=== PATIENT | male | born 1980 | race Caucasian/White ===

== ENCOUNTER 2024-11-21 14:23 | Inpatient (IN) | payer MEDICARE, MEDICAID, SELFPAY ==
--- OUTSIDE RECORDS SUMMARY | 2024-11-17 14:55 | XMS_ITS | Encounter Summary ---
Author Organization [facility] Address [address] [place] [address] Care Team Providers Care Test Desk Trouble Locator Name Role Phone Physician, No Pcp Primary Care Provider Unavaila ble Reason for Visit * Reason Comments Suicidal Hearing voices since yesterday Encounter Details Date Type Department Care Team (Late st Contact Info) Description 11/17/2024 2:55 PM EDT - 11/17/2024 6:45 PM EDT Emergency [facility] Emergency [address] [place] [id number] Robert Rebolledo MD [address] [place] [address] Sergio Quiles MD [address] [place] [address] Behavioral problem (Primary Dx) Discharge Disposition: Home or Self Care Social History Tobacco Use Types Packs/Day Years Used Date Smoking Tobacco: Every Day Cigarettes Alcohol Use Standard Drinks/Week Comments Not Currently 0 (1 standard drink = 0.6 oz pur e alcohol) Sex and Gender Information Value Date Recorded Sex Assigned at Male 05/21/2024 5:40 PM EDT Legal Sex Male 2:59 AM EST Gender Identity Male 05/21/2024 5:40 PM EDT Sexual Orientation Straight 05/21/2024 5: 40 PM EDT documented as of this encounter Last Filed Vital Signs Vital Sign Reading Time Taken Comments Blood Pressure 106/67 11/17/2024 5:09 PM EDT Pulse 59 11/17/2024 5:09 PM EDT Temperature 36.6 C (97.9 F) 11/17/2024 2:53 PM EDT Respiratory Rate 18 11/17/2024 5:09 PM EDT Oxygen Saturation 100% 11/17/2024 5:09 PM EDT Inhaled Oxygen Concentration - - Weight 99.8 kg (220 lb) 11/17/2024 2:50 PM EDT Height 172.7 cm (5' 8 ) 11/17/2024 2:50 PM EDT Body Mass Index 33.45 11/17/2024 2:50 PM EDT documented in this encounter Functional Status * Are you deaf or do you have serious difficulty hearing? Answer Date of Assessment Author No 09/29/2024 5:42 PM EDT Bud Chavez RN * Are you blind or do you have serious difficulty seeing, even when wearing glasses? Answer Date of Assessment Author No 09/29/2024 5:42 PM EDT Bud Chavez RN * Do you have serious difficulty walking or climbing stairs? Answer Date of Assessment Author No 09/29/2024 5:42 PM EDT Bud Chavez RN * Do you have serious difficulty dressing or bathing? Answer Date of Assessment Author No 09/29/2024 5:42 PM EDT Bud Chavez RN * Because of a physical, mental, or emotional condition, do you have serious difficulty doing errandsalone such as visiting the doctor? Answer Date of Assessment Author No 09/29/2024 5:42 PM EDT Bud Chavez RN documented as of this encounter Mental Status * Because of a physical, mental, or emotional condition, do you have serious difficulty concentrating, remembering, or making decisions? (5 years old or older) Answer Entry Date Author No 09/29/2024 5:42 PM EDT Bud Chavez RN documented in this encounter Discharge Instructions * Discharge Instructions* Sergio Quiles MD - 11/17/2024 6:04 PM EDT Follow up with primary care doctor as needed for further care. documented in this encounter Medications at Time of Discharge buprenorphine-nal oxone (SUBOXONE) 8-2 mg per [address] film Place 1 film under the tongue 3 (three) times a day. 11/05/2024 documented as of this encounter Discharge Disposition Disposition Code Departure Means Destination Comment s Home or Self Care documented in this encounter Progress Notes * Sergio Quiles MD - 11/17/2024 6:03 PM EDT Pt signed out to me by Dr. Rebolledo. Briefly, he is a 43 year old male who is being evaluated with complaints of suicidal ideation. The patient was evaluated by crisis, and they cleared him safe for discharge. I performed a substantiative portion of the medical decision making. * Albina Thapa RN - 11/17/2024 2:50 PM EDT Pt presents with thoughts of suicidal ideation and auditory hallucinations that started yesterday. Pt reports SI without plan or intent to act. Pt reports hx of schizophrenia. * Robert Rebolledo MD - 11/17/2024 2:47 PM EDT HPI Chief Complaint Patient presents with Suicidal Hearing voices since yesterday HPI 43-year-old male with a history of schizophrenia, polysubstance abuse on Suboxone and chronic tobacco use presents to the ED with suicidal ideation. Patient states he is hearing voices telling him tokill himself. He has no plan. He does not take any psychiatric medications at this time. Patient stated he has a history of auditory hallucination and was given prescription the last time but he doesnot take them. Richelle Coma Scale Score: 15 Patient History Past Medical History: Diagnosis Date Major depressive disorder, recurrent, severe with psychotic features (CMS/HCC V24, CMS/HCC V28) 05/2024 Opioid dependence (CMS/HCC V24, CMS/HCC V28) on suboxone Schizophrenia (CMS/HCC V24, CMS/HCC V28) History reviewed. No pertinent surgical history. No family history on file. Social History Tobacco Use Smoking status: Every Day Types: Cigarettes Smokeless tobacco: Not on file Substance Use Topics Alcohol use: Not Currently Drug use: Never Review of Systems Review of Systems All other systems reviewed and are negative. Physical Exam ED Triage Vitals [11/17/24 1453] Temp Heart Rate Resp BP 36.6 ??C (97.9 ??F) 72 18 113/68 SpO2 Temp src Heart Rate Source Patient Position 99 % -- -- Sitting BP Location FiO2 (%) Right arm -- Physical Exam Constitutional: Appearance: Normal appearance. HENT: Head: Normocephalic and atraumatic. Eyes: Extraocular Movements: Extraocular movements intact. Conjunctiva/sclera: Conjunctivae normal. Pupils: Pupils are equal, round, and reactive to light. Cardiovascular: Rate and Rhythm: Normal rate and regular rhythm. Heart sounds: Normal heart sounds. Pulmonary: Effort: Pulmonary effort is normal. Breath sounds: Normal breath sounds. Abdominal: General: Abdomen is flat. There is no distension. Palpations: Abdomen is soft. Tenderness: There is no abdominal tenderness. Musculoskeletal: General: Normal range of motion. Cervical back: Normal range of motion. Skin: General: Skin is warm and dry. Capillary Refill: Capillary refill takes less than 2 seconds. Neurological: General: No focal deficit present. Mental Status: He is alert and oriented to person, place, and time. Psychiatric: Mood and Affect: Mood normal. Behavior: Behavior normal. ED Course & MDM Clinical Impressions as of 11/18/24 0936 Behavioral problem Medical Decision Making 43-year-old male with a history of schizophrenia, polysubstance abuse on Suboxone and tobacco use presents to the ED with SI. On exam, he is alert, oriented and not in acute distress. His vitals werestable and he was satting at 99% on room air. He denies any headache, dizziness, chest pain or shortness of breath. Given the patient is currently having SI, will place patient on section 12 and have him evaluated by the crisis team. He denies any other physical complaints. Patient signed out to oncoming provider pending crisis eval. Procedures Robert Rebolledo MD 11/17/24 1559 Robert Rebolledo MD 11/18/24 0928 documented in this encounter Consult Notes * Gilles Centeno - 11/17/2024 6:45 PM EDTAssociated Order(s): IP CONSULT TO SLOT OPERATIONS DIRECTOR Images from the original note were not included. Behavioral Health Services - Crisis Assessment Important times Time of arrival: 14:55 Time of referral: 15:54 Time of readiness: 15:59 Time assessment started: 17:30 Time of disposition: 18:30 Location: Emergency Room (ER) Consulted case with: Lorraine Lopez LCSW Insurance information: Insurance: Medicare A&B Verified by: [facility] - Gilles Centeno Reason for Consultation / Presenting Problem: Reddy Dela Cruz is being seen today for a consultive service at the request of No att. providers found to assess risk and identify appropriate level of care. Patient arrived reporting that he has been hearing voices and has SI without a plan. During assessment, he stated that he is no longer feeling suicidal and that he has been hearing the voices more now that he is living alone in an apartment. Patient reported that he needs a counselor. S providedpatient with BHN information and asked if he would like S to put in a referral for BHN. Patient declined BHN referral. He denied SI/HI/VH. History of Present Illness: Reddy is a 43 y.o. male with Chief Complaint Patient presents with Suicidal Hearing voices since yesterday Social/Educational History: Guardian - if Yes, provide contact information: No Status: No State Agency Involvement: None Luis Miguel's Order: No Marital Status: Single Alternative Placement Details: None Living Situation for patient: Patient has recently gotten an apartment through [facility]. Household Members/Age: Patient lives independently by himself. Friendships/Family/Social Peer Support/Relationships: Unknown Highest level of education: 9th grade Comments (Include Learning Needs): None Occupation: Disabled Employment/Extracurricular Activities/Hobbies: Unknown Limitations of Daily Activities: None Strengths/Supports: Patient has stable housing and income. Patient is help- seeking. Patient is ableto advocate for himself. Collaterals, contact information, and engagement level: Therapist: [facility]: Psychiatrist: [facility]: PCP: Unknown Family: None reported Other: [facility] counseling case managerGrant Mental Status Speech: WNL Eye Contact: WNL Motor Activity: WNL Mood: Pleasant Affect: Appropriate Sleep: WNL Appetite: WNL Memory: WNL Attention / Concentration: WNL Behavior: Cooperative and Calm Appearance: Hallucinations: Auditory Delusions: None Thought Content: WNL SI: Denied HI: Denied Thought Process: WNL Orientation Impairment: None Insight: Fair Judgment: Fair Impulse Control: Fair Substance Use History (Including family history): Previous assessment reports that patient has a history of using heroin, cannabis, and alcohol. Per previous documentation, patient last used heroin 5 years ago and drinks socially. Utox Results: Utox was positive for cannabis and suboxone. BAL was normal. Substance Use Treatment History: Patient has a history of detox admissions. He is currently receiving suboxone through [facility]. Mental Health Treatment History: Outpatient Mental Health Treatment: Patient is receiving outpatient mental health support through [facility]. Previous or Current Psychological Diagnosis: Previous documentation reports that patient has been diagnosed with schizophrenia and depression. Prior Psychiatric Hospitalizations/Residential Treatment Facilities: Patient is known to [facility] through multiple crisis assessments and inpatient psychiatric admissions. Per documentation, patient's last inpatient hospitalization was at [facility] in 06/2024. Other Comments Regarding Mental Health Treatment History: No Mental Health Concerns in Family: None reported Trauma History: Patient denied history of trauma or abuse. Medications: Scheduled Meds: Continuous Infusions: PRN Meds: Risk Assessment: Self-Harm: None Suicidal Behavior: None Homicidal Behavior: None Physical Assault: None Physical Aggression: None Property Damage: None Verbal Aggression: None Family history of suicide: None reported Protective Factors: Patient has stable housing and income. Patient is help- seeking. Patient is ableto advocate for himself. Risk Factors: Patient continues to struggle with AH. Patient is experiencing life change (new apartment after having been homeless). Suicide Risk: Based on patient's history and current presentation, their level of risk for intentional lethal harm is considered Low Safety Plan Completed: no Patient is aware that he is able to return to [facility] if he becomes worse. Interventions: Risk/crisis assessment, active listening, empathetic listening, resources Response to interventions: Patient was cooperative, engaged, and aligned with speaking with [facility]. DSM-5TR Diagnosis: F33.2 Major Depression recurrent, moderate Plan: Based on the information above, patient does not meet criteria for psychiatric inpatient admission.Per patient request he was provided with information for [facility]. Upon discharge, patient would benefitfrom reaching out to [facility] and setting up supports now that he is no longer unhoused. Recommendations were discussed with requesting provider. It was a pleasure to assist Reddy Dela Cruz here at [facility]. This report is written and finalized by: Gilles Centeno Behavioral Health Specialist [facility] (Tel): [phone] / : [phone] documented in this encounter Plan of Treatment Not on file documented as of this encounter Procedures Procedure Name Priority Date/Time Associated Diagnosis Comments ECG ANNOTATED 11/18/2024 ECG 12-LEAD STAT 11/17/2024 5:09 PM EDT DRUG ABUSE SCREEN 8A PANEL, URINE STAT 11/17/2024 3:25 PM EDT BUPRENORPHINE SCREEN, URINE STAT 11/17/2024 3:25 PM EDT METHADONE SCREEN, URINE STAT 11/17/2024 3:25 PM EDT PHENCYCLIDINE, URINE STAT 11/17/2024 3:25 PM EDT CBC WITH AUTO DIFFERENTIAL STAT 11/17/2024 3:24 PM EDT CBC AND DIFFERENTIAL STAT 11/17/2024 3:24 PM EDT ETHANOL STAT 11/17/2024 3:24 PM EDT ACETAMINOPHEN LEVEL STAT 11/17/2024 3 :24 PM EDT SALICYLATE LEVEL STAT 11/17/2024 3:24 PM EDT COMPREHENSIVE METABOLIC PANEL STAT 11/17/2024 3:24 PM EDT documented in this encounter Results * ECG-Annotated (11/18/2024) us Provider Onbase MD ECG ORDERABLES Final Result * ECG 12 lead (11/17/2024 5:09 PM EDT) Ventricular Rate ECG 55 BPM GEMUSE Atrial Rate 55 BPM GEMUSE P-R Interval 164 ms GEMUSE QRS Duration 84 ms GEMUSE Q-T Interval 390 ms GEMUSE QTc 373 ms GEMUSE P Wave [place] 20 degrees GEMUSE R [place] 22 degrees GEMUSE T [place] 1 degrees GEMUSE ECG Interpretation Sinus bradycardia Nonspecific T wave abnormality When compared with ECG of 01-JUL-2024 13:02, Vent. rate has decreased BY 27 BPM Confirmed by Ara HIDALGO YUFENG ([id number]) on 11/17/2024 6:46:10 PM GEMUSE 11/17/2024 5:09 PM EDT 11/17/2024 6:46 PM EDT Robert Rebolledo MD ECG ORDERABLES Mindy l Result Performing Organization Address City/[facility]/ZIP Co de Phone Number GEMUSE * Methadone, urine (11/17/2024 3:25 PM EDT) Pathologist [facility] Methadone Screen, Urine Negative Negative LAB CHEMISTRY METHOD 11/17/2024 4:02 PM EDT [facility] Comment: Assay cutoff 300 ng/mL Semi-quantitative assay for screening purposes only. Unconfirmed screening result should not be used for non-medical purposes. *ALTERNATE METHOD CONFIRMATION DONE UPON REQUEST ONLY* Urine Urine specimen obtained by clean catch procedure / Unknown Non-blood Collection / Unknown 11/17/2024 3:25 PM EDT 11/17/2024 3:32 PM EDT Robert Rebolledo MD LAB URINE ORDERABLES Final Result [facility] [address] [place] [address], [place] [phone] * Phencyclidine, urine (11/17/2024 3:25 PM EDT) PCP Scrn, Ur Negative Negative LAB CHEMISTRY METHOD 11/17/2024 4:02 PM EDT [facility] Comment: Assay cutoff 25 ng/mL Semi-quantitative assay for screening purposes only. Unconfirmed screening result should not be used for non-medical purposes. *ALTERNATE METHOD CONFIRMATION DONE UPON REQUEST ONLY* Urine Urine specimen obtained by clean catch procedure / Unknown Non-blood Collection / Unknown 11/17/2024 3:25 PM EDT 11/17/2024 3:32 PM EDT Robert Rebolledo MD LAB URINE ORDERABLES Final Result [facility] [address] [place] [address], [place] [phone] * (ABNORMAL) Buprenorphine screen, urine (11/17/2024 3:25 PM EDT) Buprenorphine Screen Urine Positive (A) Negative LAB CHEMISTRY METHOD 11/17/2024 4:02 PM EDT [facility] Urine Urine specimen obtained by clean catch procedure / Unknown Non-blood Collection / Unknown 11/17/2024 3:25 PM EDT 11/17/2024 3:32 PM EDT Narrative [facility] - 11/17/2024 4:02 PM EDT Assay cutoff 5 ng/mL Semi-quantitative assay for screening purposes only. Unconfirmed screening result should not be used for non-medical purposes. *ALTERNATE METHOD CONFIRMATION DONE UPON REQUEST ONLY* Robert Rebolledo MD LAB URINE ORDERABLES Final Result [facility] [address] [place] [address], [place] [phone] * (ABNORMAL) Drug abuse screen 8a panel, urine (11/17/2024 3:25 PM EDT) Amphetamine Screen, Ur Negative Negative LAB CHEMISTRY METHOD 4:02 PM EDT [facility] Comment:Certain OTC medicati ons containing ephedrine, phenylephrine, pseudoephedrine and phenylpropanolamine can cause false positive results. Barbiturate Screen, Ur Negative Negative LAB CHEMISTRY METHOD 5 4:02 PM EDT [facility] Benzodiazepine Screen, Ur Negative Negative LAB CHEMISTRY METHOD 5 4:02 PM EDT [facility] Cocaine Screen, Ur Negative Negative LAB CHEMISTRY METHOD 5 4:02 PM [facility] Opiate Screen, Ur Negative Negative LAB CHEMISTRY METHOD 5 4:02 PM [facility] Cannabinoid (THC) Screen, Ur Positive(A ) Negative LAB CHEMISTRY METHOD 5 4:02 PM [facility] Comment:Specimens from patie nts taking pantoprazole sodium (Protonix) have been shown to produce false positive results. Oxycodone Screen, Ur Negative Negative LAB CHEMISTRY METHOD 5 4:02 PM [facility] Fentanyl, Ur Negative Negative LAB CHEMISTRY METHOD 5 4:02 PM [facility] Urine Urine specimen obtained by clean catch procedure / Unknown Non-blood Collection / Unknown 11/17/2024 3:25 PM EDT 11/17/2024 3:32 PM EDT Narrative [facility] - 11/17/2024 4:02 PM EDT Assay cutoffs: Amphetamines 1000 ng/mL Barbiturates 200 ng/mL Benzodiazepines 200 ng/mL Cocaine 300 ng/mL Fentanyl 1 ng/mL Opiates 300 ng/mL Oxycodone 100 ng/mL THC 50 ng/mL Semi-quantitative assay for screening purposes only. Unconfirmed screening result should not be used for non-medical purposes. *ALTERNATE METHOD CONFIRMATION DONE UPON REQUEST ONLY* us Robert Rebolledo MD LAB URINE ORDERABLES Final Result [facility] [address] [place] [address], * (ABNORMAL) CBC auto differential (11/17/2024 3:24 PM EDT) [facility] Signature WBC 7.2 4.8 - 10.8 K/mcL LAB HEMETOLOGY METHOD 11/17/2024 3:39 PM EDT [facility] RBC 4.20(L) 4.50 - 5.50 M/mcL LAB HEMETOLOGY METHOD 11/17/2024 3:39 PM EDT [facility] Hemoglobin 12.3(L) 13.5 - 17.5 g/dL LAB HEMETOLOGY METHOD 11/17/2024 3:39 PM EDT [facility] Hematocrit 37.6(L) 42.0 - 54.0 % LAB HEMETOLOGY METHOD 11/17/2024 3:39 PM EDT [facility] MCV 90.2 79.0 - 98.0 FL LAB HEMETOLOGY METHOD 11/17/2024 3:39 PM EDT [facility] MCH 29.5 27.0 - 32.0 pcg LAB HEMETOLOGY METHOD 11/17/2024 3:39 PM EDT [facility] MCHC 32.7 32.0 - 37.0 g/dL LAB HEMETOLOGY METHOD 11/17/2024 3:39 PM EDT [facility] RDW 13.2 11.0 - 15.0 % LAB HEMETOLOGY METHOD 11/17/2024 3:39 PM EDT [facility] Platelets 298 130 - 400 K/mcL LAB HEMETOLOGY METHOD 11/17/2024 3:39 PM EDT [facility] MPV 8.9 7.0 - 11.0 FL LAB HEMETOLOGY METHOD 11/17/2024 3:39 PM EDT [facility] NRBC 0.0 <1.0 % LAB HEMETOLOGY METHOD 11/17/2024 3:39 PM [facility] NRBC Absolute 0.00 <0.10 K/mcL LAB HEMETOLOGY METHOD 11/17/2024 3:39 PM [facility] Neutrophils Relative 48.9 % LAB HEMETOLOGY METHOD 11/17/2024 3:39 PM [facility] Lymphocytes Relative 40.7 % LAB HEMETOLOGY METHOD 11/17/2024 3:39 PM [facility] Monocytes Relative 6.2 % LAB HEMETOLOGY METHOD 11/17/2024 3:39 PM [facility] Eosinophils Relative 3.0 % LAB HEMETOLOGY METHOD 11/17/2024 3:39 PM [facility] Basophils Relative 1.1 % LAB HEMETOLOGY METHOD 11/17/2024 3:39 PM [facility] Immature Granulocytes Relative 0.1 % LAB HEMETOLOGY METHOD 11/17/2024 3:39 PM [facility] Neutrophils Absolute 3.52 1.50 - 7.00 K/mcL LAB HEMETOLOGY METHOD 11/17/2024 3:39 PM [facility] Lymphocytes Absolute 2.94 1.00 - 5.00 K/mcL LAB HEMETOLOGY METHOD 11/17/2024 3:39 PM [facility] Monocytes Absolute 0.45 0.20 - 1.00 K/mcL LAB HEMETOLOGY METHOD 11/17/2024 3:39 PM [facility] Eosinophils Absolute 0.22 0.00 - 0.50 K/mcL LAB HEMETOLOGY METHOD 11/17/2024 3:39 PM [facility] Basophils Absolute 0.08 0.00 - 0.20 K/mcL LAB HEMETOLOGY METHOD 11/17/2024 3:39 PM [facility] Immature Granulocytes Absolute 0.01 0.00 - 0.03 K/mcL LAB HEMETOLOGY METHOD 11/17/2024 3:39 PM EDT [facility] Blood Venous blood specimen / Unknown Venipuncture / Unknown 11/17/2024 3:24 PM EDT 11/17/2024 3:32 PM EDT us Robert Rebolledo MD LAB BLOOD ORDERABLES Final Result Performing Organization Address [facility]/ZIP Co de Phone Number [facility] [address] [place] [address], [place] [phone] * (ABNORMAL) Salicylate level (11/17/2024 3:24 PM EDT) Salicylate Level <1.7(L) 2.0 - 29.0 mg/dL LAB CHEMISTRY METHOD 11/17/2024 4:03 PM EDT [facility] Blood Venous blood specimen / Unknown Venipuncture / Unknown 11/17/2024 3:24 PM EDT 11/17/2024 3:32 PM EDT us Robert Rebolledo MD LAB BLOOD ORDERABLES Final Result Performing Organization Address [facility]/ZIP Co de Phone Number [facility] [address] [place] [address], [place] [phone] * (ABNORMAL) Acetaminophen level (11/17/2024 3:24 PM EDT) Acetaminophen Level <2.0(L) 10.0 - 30.0 mcg/mL LAB CHEMISTRY METHOD 11/17/2024 4:03 PM EDT [facility] Blood Venous blood specimen / Unknown Venipuncture / Unknown 11/17/2024 3:24 PM EDT 11/17/2024 3:32 PM EDT us Robert Rebolledo MD LAB BLOOD ORDERABLES Final Result Performing Organization Address City/[facility]/ZIP Co de Phone Number [facility] [address] [place] [address], [place] [phone] * Ethanol (11/17/2024 3:24 PM EDT) Ethanol Level <3 0 - 10 mg/dL LAB CHEMISTRY METHOD 11/17/2024 4:03 PM EDT [facility] Blood Venous blood specimen / Unknown Venipuncture / Unknown 11/17/2024 3:24 PM EDT 11/17/2024 3:32 PM EDT Robert Rebolledo MD LAB BLOOD ORDERABLES Final Result Performing Organization Address [facility]/ZIP Co de Phone Number [facility] [address] [place] [address], [place] [phone] * (ABNORMAL) Comprehensive metabolic panel (11/17/2024 3:24 PM EDT) Pathologist [facility] Sodium 141 133 - 145 mmol/L LAB CHEMISTRY METHOD 11/17/2024 4:03 PM [facility] Potassium 4.3 3.5 - 5.5 mmol/L LAB CHEMISTRY METHOD 11/17/2024 4:03 PM [facility] Chloride 106 96 - 110 mmol/L LAB CHEMISTRY METHOD 11/17/2024 4:03 PM [facility] CO2 29 21 - 32 mmol/L LAB CHEMISTRY METHOD 11/17/2024 4:03 PM [facility] Anion Gap 6 3 - 11 LAB CHEMISTRY METHOD 11/17/2024 4:03 PM [facility] Glucose 101(H) 70 - 100 mg/dL LAB CHEMISTRY METHOD 11/17/2024 4:03 PM [facility] BUN 10 5 - 25 mg/dL LAB CHEMISTRY METHOD 11/17/2024 4:03 PM [facility] Creatinine 0.87 0.70 - 1.30 mg/dL LAB CHEMISTRY METHOD 11/17/2024 4:03 PM [facility] eGFR 109 >=60 mL/min/1. 73m2 LAB CHEMISTRY METHOD 11/17/2024 4:03 PM [facility] [facility] Comment:Calculation based on the Chronic Kidney Disease Epidemiology Collaboration (CKD-EPI) equation refit without adjustment for race. BUN/Creatinine Ratio 11.5 LAB CHEMISTRY METHOD 11/17/2024 4:03 PM [facility] Calcium 8.9 8.5 - 10.5 mg/dL LAB CHEMISTRY METHOD 11/17/2024 4:03 PM [facility] AST (SGOT) 20 10 - 42 unit/L LAB CHEMISTRY METHOD 11/17/2024 4:03 PM [facility] ALT (SGPT) 15 10 - 60 unit/L LAB CHEMISTRY METHOD 11/17/2024 4:03 PM [facility] Alkaline Phosphatase 106 42 - 121 unit/L LAB CHEMISTRY METHOD 11/17/2024 4:03 PM [facility] Total Protein 6.5 6.0 - 8.0 g/dL LAB CHEMISTRY METHOD 11/17/2024 4:03 PM [facility] Albumin 3.8 3.2 - 5.0 g/dL LAB CHEMISTRY METHOD 11/17/2024 4:03 PM [facility] Total Bilirubin 0.3 0.0 - 1.4 mg/dL LAB CHEMISTRY METHOD 11/17/2024 4:03 PM [facility] Blood Venous blood specimen / Unknown Venipuncture / Unknown 11/17/2024 3:24 PM EDT 11/17/2024 3:32 PM EDT us Robert Rebolledo MD LAB BLOOD ORDERABLES Final Result [facility] [address] [place] [address], documented in this encounter Visit Diagnoses Diagnosis Behavioral problem- Primary Unspecified mental or behavioral problem documented in this encounter Historical Medications * This list may reflect changes made after this encounter. buprenorphine-nal oxone (SUBOXONE) 8-[address] 1 film under the tongue 3 (three) times a day. 11/05/2024 added in this encounter Orders Consult Count Last Ordered Date First Orde red Date IP CONSULT TO SLOT OPERATIONS DIRECTOR 1 11/17/2024 documented in this encounter Care Teams Test Desk Trouble Locator Relationship Specialty Start Date End Date Physician, No Pcp PCP - General 05/21/24 documented as of this encounter
--- OUTSIDE RECORDS SUMMARY | 2024-11-18 17:00 | XMS_ITS | Encounter Summary ---
Author Organization [facility] Address [address] [place] [address] Care Team Providers Care Community Relations Coordinator Name Role Phone Physician, No Pcp Primary Care Provider Unavaila ble Encounter Details Date Type Department Care Team (Late st Contact Info) Description 11/18/2024 5:00 PM EDT - 11/18/2024 6:51 PM EDT Emergency [facility] Emergency [address] [place] [address] Discharge Disposition: Home or Self Care Social [...] PM EDT documented as of this encounter Functional Status * Are you [...] of Assessment Author No 09/29/2024 5:42 PM Bud Harrison RN documented as of this encounter Mental Status * Because of a physical, mental, or emotional condition, do you have serious difficulty concentrating, remembering, or making decisions? (5 years old or older) Answer Entry Date Author No 09/29/2024 5:42 PM Bud Harrison RN documented in this encounter Medications at Time of Discharge buprenorphine-nal oxone (SUBOXONE) 8-[address] 1 film under the tongue 3 (three) times a day. 11/05/2024 documented as of this encounter Discharge Disposition Disposition Code Departure Means Destination Home or Self Care documented in this encounter Plan of Treatment Not on file documented as of this encounter Visit Diagnoses Not on filedocumented in this encounter Care Teams Community Relations Coordinator Relationship Specialty Start Date End Date Physician, No Pcp PCP - General 05/21/24 documented as of this encounter
--- OUTSIDE RECORDS SUMMARY | 2024-11-19 14:13 | XMS_ITS | Encounter Summary ---
Author Organization [employer] Address [address] [place] [address] Care Team Providers Care Radial Saw Operator Name Role Phone Physician, No Pcp Primary Care Provider Unavaila ble Reason for Visit * Reason Comments auditory hallucinations Suicidal No plan Encounter Details Date Type Department Care Team (Late st Contact Info) Description 11/19/2024 2:13 PM EDT - 11/19/2024 4:31 PM EDT Emergency [facility] Emergency [address] [place] [address] Robert Rebolledo MD [address] [place] [address] Schizophrenia, unspecified type (CMS/HCC V24, CMS/HCC V28) (Primary Dx); Suicidal ideation Discharge Disposition: Home or Self Care Social [...] Sign Reading Time Taken Comments Blood Pressure 115/70 11/19/2024 2:08 PM EDT Pulse 83 11/19/2024 2:08 PM EDT Temperature 37 C (98.6 F) 11/19/2024 2:08 PM EDT Respiratory Rate 17 11/19/2024 2:08 PM EDT Oxygen Saturation 97% 11/19/2024 2:08 PM EDT Inhaled Oxygen Concentration - - Weight 99.8 kg (220 lb) 11/19/2024 2:08 PM EDT Height 172.7 cm (5' 8 ) 11/19/2024 2:08 PM EDT Body Mass Index 33.45 11/19/2024 2:08 PM EDT documented in this encounter Functional [...] this encounter Discharge Instructions * Discharge Instructions* Robert Rebolledo MD - 11/19/2024 4:30 PM EDT You were seen in the ER for evaluation of your auditory hallucination and suicidal ideation. You were evaluated by the crisis team and they deemed you safe for discharge. You were offered resources to assist you in the community. Please follow-up with your PCP for recent visit and return to the ERwith new, worsening or concerning symptoms. documented in this encounter Medications at Time of Discharge buprenorphine-nal oxone (SUBOXONE) 8-[address] mg [address] film [address] 1 film under the tongue 3 (three) times a day. 11/05/2024 documented as of this encounter Discharge Disposition Disposition Code Departure Means Destination Comment s Home or Self Care Pt cleared by crisis. Dc instructions given to and reviewed with patient. Questions answered with patient stating understanding. Belongings returned to pt. Pt ambulatory with steady gait. documented in this encounter Progress Notes * Aniya Perez RN - 11/19/2024 2:09 PM EDT Reports auditory hallucinations since yesterday, reports feeling si but denies plan * Robert Rebolledo MD - 11/19/2024 2:03 PM EDT HPI Chief Complaint Patient presents with auditory hallucinations Suicidal No plan HPI 43-year-old male with a history of schizophrenia, polysubstance abuse on Suboxone and chronic tobacco use presents to the ED with suicidal ideation and auditory hallucination. Patient states that HE had send patient has been ongoing for several years. He came to the ER 2 days ago to be evaluated for SI but felt better so he got discharged. Since arriving home, he he continued to have SI and unsafe at home so he presents to the ER for reevaluation. He denies smoking, drinking or use of any illicit drugs. He denies any other physical complaints. No data recorded Patient History Past Medical History: Diagnosis Date Major depressive disorder, recurrent, severe with psychotic features ([facility] V24, [facility] V28) 05/2024 Opioid dependence ([facility] V24, [facility] V28) on suboxone Schizophrenia ([facility] V24, [facility] V28) History reviewed. No pertinent surgical history. No family history on file. Social History Tobacco Use Smoking status: Every Day Types: Cigarettes Smokeless tobacco: Not on file Substance Use Topics Alcohol use: Not Currently Drug use: Never Review of Systems Review of Systems All other systems reviewed and are negative. Physical Exam ED Triage Vitals [11/19/24 1408] Temp Heart Rate Resp BP 37 ??C (98.6 ??F) 83 17 115/70 SpO2 Temp Source Heart Rate Source Patient Position 97 % Oral Right Sitting BP Location FiO2 (%) Left arm -- Physical Exam Constitutional: Appearance: Normal [...] Course & MDM Clinical Impressions as of 11/19/24 1846 Schizophrenia, unspecified type ([facility] V24, [facility] V28) Suicidal ideation Medical Decision Making 43-year-old male with a history of schizophrenia, polysubstance abuse on Suboxone and chronic tobacco use presents to the ED with suicidal ideation and auditory hallucination. Exam, he is alert, oriented and not in acute distress. His vitals were stable and he was satting 97% on room air. He denieschest pain or shortness of breath. Denies headaches or dizziness. Patient states that he feels unsafe at home due to suicidal ideation but has no plan. Patient was evaluated by the crisis team 2 daysago where they offered patient outpatient resources but he declined stating that he felt better andwould like to be discharged. I evaluated pt 2 days and he denies any change in his symptoms. Given his reassuring exam, patient is medically cleared to be evaluated by the crisis team. Patient was evaluated by the crisis team and deemed safe for discharge. They provided him with outpatient resources. He is advised to follow-up with his PCP for recent visit and to return to the ER with new, worsening or concerning symptoms. Procedures Robert Rebolledo MD 11/19/24 1526 Robert Rebolledo MD 11/19/24 1554 Robert Rebolledo MD 11/19/24 1557 Robert Rebolledo MD 11/19/24 1849 documented in this encounter Consult Notes * Audelia Fritz - 11/19/2024 4:25 PM EDTAssociated Order(s): IP CONSULT TO RADIATION CONTROL TECHNICIAN Images from the original note were not included. Behavioral Health Services - Crisis Assessment Important times Time of arrival: 11/19/24 2:13 pm Time of referral: 11/19/24 2:30 pm Time of readiness: 11/19/24 3:00 pm Time assessment started: 11/19/24 3:30 pm Time of disposition: 11/19/24 4:30 pm Location: [facility] Emergency Room Consulted case with: Lorraine Lopez LCSW Insurance information: Insurance: Med A&B Verified by: Audelia Reason for Consultation / Presenting Problem: Reddy Dela Cruz is being seen today for a consultive service at the request of Robert Rebolledo* to assess risk and identify appropriate level of care. 43-year-old male with a history of schizophrenia, polysubstance abuse on Suboxone and chronic tobacco use presents to the ED with suicidal ideation and auditory hallucination. Patient states that HE had send patient has been ongoing for several years. He came to the ER 2 days ago to be evaluatedfor SI but felt better so he got discharged. Since arriving home, he he continued to have SI and unsafe at home so he presents to the ER for reevaluation. He denies smoking, drinking or use of any illicit drugs. He denies any other physical complaints. Reddy reported I have a new apartment and I get lonely . He stated I don't know what to do with myself and the friends I have are not good friends . He stated I need something to do I guess but Idon't know what . He stated I don't want to be around people who are not good for me . He stated I hear voices all the time but they tell me to come back home and things like that . History of Present Illness: Reddy is a 43 y.o. male with Chief Complaint Patient presents with auditory hallucinations Suicidal No plan Social/Educational History: Guardian - if Yes, provide contact information: self Status: N/A State Agency Involvement: None reported Luis Miguel's Order: None reported Marital Status: single Alternative Placement Details: N/A Living Situation for patient: Homeless/[facility] Household Members/Age: N/A Friendships/Family/Social Peer Support/Relationships: Reddy reported he has a few friends who are supportive. Highest level of education: 6th grade Comments (Include Learning Needs): None reported Occupation: unemployed Employment/Extracurricular Activities/Hobbies: unemployed Limitations of Daily Activities: None reported Strengths/Supports: Reddy is able to access his needs. Collaterals, contact information, and engagement level: Therapist: [facility] [phone] Psychiatrist: None reported PCP: Unknown Family: None reported Other: [facility] clinic counselor Ms. Baxter [phone] Mental Status Speech: WNL Eye Contact: WNL Motor Activity: WNL Mood: WNL Affect: Appropriate Sleep: WNL Appetite: WNL Memory: Mild Impairment Attention / Concentration: WNL Behavior: Cooperative Appearance: Hallucinations: Auditory not command Delusions: None Thought Content: WNL SI: Denied HI: Denied Thought Process: Goal oriented Orientation Impairment: None Insight: WNL Judgment: WNL Impulse Control: WNL Substance Use History (Including family history): Alcohol I drink socially. Not for a while Marijuana onset age 12, daily. Last use 1 weeks ago. Heroin onset age 18, daily, snort, 17-25 bags. Last use 6 years ago. Utox Results: BAL negative TOX positive for Buprenophine and Cannabis Substance Use Treatment History: Reddy reported a history of detox admissions. He denies any history of terminal makeup operator substance abuse programs. He is on agonist therapy (suboxone) with [facility]. Mental Health Treatment History: Outpatient Mental Health Treatment: None reported Previous or Current Psychological Diagnosis: Major Depression and opioid use. Prior Psychiatric Hospitalizations/Residential Treatment Facilities: Reddy is known to [facility] [employer]. He denies any history of suicide attempts. Reddy reported a history of inpatient psychiatric admissions. He stated his last hospitalization was to [place] in 06/28. Other Comments Regarding Mental Health Treatment History: None reported Mental Health Concerns in Family: None reported Trauma History: Reddy denies any history of sexual abuse or other trauma. Medications: Scheduled Meds: Continuous Infusions: PRN Meds: Risk Assessment: Self-Harm: None Suicidal Behavior: None Homicidal Behavior: None Physical Assault: None Physical Aggression: None Property Damage: None Verbal Aggression: None Family history of suicide: None reported Protective Factors: Stable housing Able to access his needs. Risk Factors: Lack of supports and day structure. Suicide Risk: Based on patient's history and current presentation, their level of risk for intentional lethal harm is considered Low Safety Plan Completed: yes Reddy was given a list of supports to follow up with. Interventions: Used active listening Response to interventions: Reddy was engaged in the conversation. DSM-5TR Diagnosis: F33.2 Major Depression recurrent, moderate Plan: Reddy is at low risk for suicidal or homicidal plan and intent. He is not reporting harm to himself or others. He reported he was feeling lonely and needed something to do during the day. He was given a list of places he could attend. He stated he was also going [facility] to see if he could get back into therapy. Recommendations were discussed with requesting provider. It was a pleasure to assist Reddy Dela Cruz here at [facility]. This report is written and finalized by: Audelia Fritz MS Behavioral Health Specialist [facility] (Tel): [phone] / : [phone] documented in this encounter Plan of Treatment Not on file documented as of this encounter Procedures Procedure Name Priority Date/Time Associated Diagnosis Comments DRUG ABUSE SCREEN 8A PANEL, URINE STAT 11/19/2024 2:58 PM EDT BUPRENORPHINE SCREEN, URINE STAT 11/19/2024 2:58 PM EDT METHADONE SCREEN, URINE STAT 11/19/2024 2:58 PM EDT PHENCYCLIDINE, URINE STAT 11/19/2024 2:58 PM EDT CBC WITH AUTO DIFFERENTIAL STAT 11/19/2024 2:52 PM EDT CBC AND DIFFERENTIAL STAT 11/19/2024 2:52 PM EDT ETHANOL STAT 11/19/2024 2:52 PM EDT ACETAMINOPHEN LEVEL STAT 11/19/2024 2 :52 PM EDT SALICYLATE LEVEL STAT 11/19/2024 2:52 PM EDT COMPREHENSIVE METABOLIC PANEL STAT 11/19/2024 2:52 PM EDT documented in this encounter Results * Methadone, urine (11/19/2024 2:58 PM EDT) Methadone Screen, Urine Negative Negative LAB CHEMISTRY METHOD 11/19/2024 4:07 PM EDT [facility] Comment: Assay cutoff 300 ng/mL Semi-quantitative assay for screening purposes only. Unconfirmed screening result should not be used for non-medical purposes. *ALTERNATE METHOD CONFIRMATION DONE UPON REQUEST ONLY* Urine Urine specimen obtained by clean catch procedure / Unknown Non-blood Collection / Unknown 11/19/2024 2:58 PM EDT 11/19/2024 3:28 PM EDT [facility] URINE ORDERABLES Fin al Result [facility] [address] [place] [address], * Phencyclidine, urine (11/19/2024 2:58 PM EDT) PCP Scrn, Ur Negative Negative LAB CHEMISTRY METHOD 11/19/2024 4:07 PM EDT [facility] Comment: Assay cutoff 25 ng/mL Semi-quantitative assay for screening purposes only. Unconfirmed screening result should not be used for non-medical purposes. *ALTERNATE METHOD CONFIRMATION DONE UPON REQUEST ONLY* Urine Urine specimen obtained by clean catch procedure / Unknown Non-blood Collection / Unknown 11/19/2024 2:58 PM EDT 11/19/2024 3:28 PM EDT [facility] URINE ORDERABLES Fin al Result Performing Organization Address [facility] Co de Phone Number [facility] [address] [place] [address], * (ABNORMAL) Buprenorphine screen, urine (11/19/2024 2:58 PM EDT) Buprenorphine Screen Urine Positive (A) Negative LAB CHEMISTRY METHOD 11/19/2024 4:07 PM EDT [facility] Urine Urine specimen obtained by clean catch procedure / Unknown Non-blood Collection / Unknown 11/19/2024 2:58 PM EDT 11/19/2024 3:28 PM EDT Narrative [facility] - 11/19/2024 4:07 PM EDT Assay cutoff 5 ng/mL Semi-quantitative assay for screening purposes only. Unconfirmed screening result should not be used for non-medical purposes. *ALTERNATE METHOD CONFIRMATION DONE UPON REQUEST ONLY* us [facility] URINE ORDERABLES Fin al Result Performing Organization Address [facility] de Phone Number [facility] [address] [place] [address], * (ABNORMAL) Drug abuse screen 8a panel, urine (11/19/2024 2:58 PM EDT) Pathologist [facility] Amphetamine Screen, Ur Negative Negative LAB CHEMISTRY METHOD 4:07 PM EDT [facility] Comment:Certain OTC medicati ons containing ephedrine, phenylephrine, pseudoephedrine and phenylpropanolamine can cause false positive results. Barbiturate Screen, Ur Negative Negative LAB CHEMISTRY METHOD 4:07 PM EDT [facility] Benzodiazepine Screen, Ur Negative Negative LAB CHEMISTRY METHOD 5 4:07 PM EDT [facility] Cocaine Screen, Ur Negative Negative LAB CHEMISTRY METHOD 5 4:07 PM EDT [facility] Opiate Screen, Ur Negative Negative LAB CHEMISTRY METHOD 5 4:07 PM EDT [facility] Cannabinoid (THC) Screen, Ur Positive(A ) Negative LAB CHEMISTRY METHOD 5 4:07 PM EDT [facility] Comment:Specimens from patie nts taking pantoprazole sodium (Protonix) have been shown to produce false positive results. Oxycodone Screen, Ur Negative Negative LAB CHEMISTRY METHOD 5 4:07 PM EDT [facility] Fentanyl, Ur Negative Negative LAB CHEMISTRY METHOD 5 4:07 PM T [facility] Urine Urine specimen obtained by clean catch procedure / Unknown Non-blood Collection / Unknown 11/19/2024 2:58 PM EDT 11/19/2024 3:28 PM EDT Narrative [facility] - 11/19/2024 4:07 PM EDT Assay cutoffs: Amphetamines 1000 ng/mL Barbiturates 200 ng/mL Benzodiazepines 200 ng/mL Cocaine 300 ng/mL Fentanyl 1 ng/mL Opiates 300 ng/mL Oxycodone 100 ng/mL THC 50 ng/mL Semi-quantitative assay for screening purposes only. Unconfirmed screening result should not be used for non-medical purposes. *ALTERNATE METHOD CONFIRMATION DONE UPON REQUEST ONLY* us [facility] URINE ORDERABLES Fin al Result [facility] [address] [place] [address], * (ABNORMAL) CBC auto differential (11/19/2024 2:52 PM EDT) Pathologist [facility] WBC 8.0 4.8 - 10.8 K/mcL LAB HEMETOLOGY METHOD 11/19/2024 3:42 PM EDT [facility] RBC 4.60 4.50 - 5.50 M/mcL LAB HEMETOLOGY METHOD 11/19/2024 3:42 PM [facility] Hemoglobin 13.4(L) 13.5 - 17.5 g/dL LAB HEMETOLOGY METHOD 11/19/2024 3:42 PM [facility] Hematocrit 40.7(L) 42.0 - 54.0 % LAB HEMETOLOGY METHOD 11/19/2024 3:42 PM [facility] MCV 88.7 79.0 - 98.0 FL LAB HEMETOLOGY METHOD 11/19/2024 3:42 PM [facility] MCH 29.2 27.0 - 32.0 pcg LAB HEMETOLOGY METHOD 11/19/2024 3:42 PM [facility] MCHC 32.9 32.0 - 37.0 g/dL LAB HEMETOLOGY METHOD 11/19/2024 3:42 PM [facility] RDW 13.2 11.0 - 15.0 % LAB HEMETOLOGY METHOD 11/19/2024 3:42 PM [facility] Platelets 331 130 - 400 K/mcL LAB HEMETOLOGY METHOD 11/19/2024 3:42 PM [facility] MPV 8.9 7.0 - 11.0 FL LAB HEMETOLOGY METHOD 11/19/2024 3:42 PM [facility] NRBC 0.0 <1.0 % LAB HEMETOLOGY METHOD 11/19/2024 3:42 PM [facility] NRBC Absolute 0.00 <0.10 K/mcL LAB HEMETOLOGY METHOD 11/19/2024 3:42 PM [facility] Neutrophils Relative 53.4 % LAB HEMETOLOGY METHOD 11/19/2024 3:42 PM EDT [facility] Lymphocytes Relative 36.7 % LAB HEMETOLOGY METHOD 11/19/2024 3:42 PM [facility] Monocytes Relative 6.2 % LAB HEMETOLOGY METHOD 11/19/2024 3:42 PM [facility] Eosinophils Relative 2.5 % LAB HEMETOLOGY METHOD 11/19/2024 3:42 PM [facility] Basophils Relative 1.0 % LAB HEMETOLOGY METHOD 11/19/2024 3:42 PM [facility] Immature Granulocytes Relative 0.2 % LAB HEMETOLOGY METHOD 11/19/2024 3:42 PM [facility] Neutrophils Absolute 4.29 1.50 - 7.00 K/mcL LAB HEMETOLOGY METHOD 11/19/2024 3:42 PM [facility] Lymphocytes Absolute 2.95 1.00 - 5.00 K/mcL LAB HEMETOLOGY METHOD 11/19/2024 3:42 PM [facility] Monocytes Absolute 0.50 0.20 - 1.00 K/mcL LAB HEMETOLOGY METHOD 11/19/2024 3:42 PM [facility] Eosinophils Absolute 0.20 0.00 - 0.50 K/mcL LAB HEMETOLOGY METHOD 11/19/2024 3:42 PM [facility] Basophils Absolute 0.08 0.00 - 0.20 K/mcL LAB HEMETOLOGY METHOD 11/19/2024 3:42 PM [facility] Immature Granulocytes Absolute 0.02 0.00 - 0.03 K/mcL LAB HEMETOLOGY METHOD 11/19/2024 3:42 PM [facility] Blood Venous blood specimen / Unknown Venipuncture / Unknown 11/19/2024 2:52 PM EDT 11/19/2024 3:29 PM EDT us [facility] BLOOD ORDERABLES Fin al Result Performing Organization Address City/[facility]/ZIP Co de Phone Number [facility] [address] [place] [address], [place] [phone] * (ABNORMAL) Salicylate level (11/19/2024 2:52 PM EDT) Salicylate Level <1.7(L) 2.0 - 29.0 mg/dL LAB CHEMISTRY METHOD 11/19/2024 4:18 PM EDT [facility] Blood Venous blood specimen / Unknown Venipuncture / Unknown 11/19/2024 2:52 PM EDT 11/19/2024 3:29 PM EDT us [facility] BLOOD ORDERABLES Fin al Result Performing Organization Address [facility] Co de Phone Number [facility] [address] [place] [address], [place] [phone] * (ABNORMAL) Acetaminophen level (11/19/2024 2:52 PM EDT) Acetaminophen Level <2.0(L) 10.0 - 30.0 mcg/mL LAB CHEMISTRY METHOD 11/19/2024 4:19 PM EDT [facility] Blood Venous blood specimen / Unknown Venipuncture / Unknown 11/19/2024 2:52 PM EDT 11/19/2024 3:29 PM EDT us [facility] BLOOD ORDERABLES Fin al Result Performing Organization Address [facility] Co de Phone Number [facility] [address] [place] [address], [place] [phone] * Ethanol (11/19/2024 2:52 PM EDT) Ethanol Level <3 0 - 10 mg/dL LAB CHEMISTRY METHOD 11/19/2024 4:18 PM EDT [facility] Blood Venous blood specimen / Unknown Venipuncture / Unknown 11/19/2024 2:52 PM EDT 11/19/2024 3:29 PM EDT [facility] BLOOD ORDERABLES Franki al Result [facility] [address] [place] [address], [place] [phone] * Comprehensive metabolic panel (11/19/2024 2:52 PM EDT) [facility] Sodium 137 133 - 145 mmol/L LAB CHEMISTRY METHOD 11/19/2024 4:18 PM [facility] Potassium 4.4 3.5 - 5.5 mmol/L LAB CHEMISTRY METHOD 11/19/2024 4:18 PM [facility] Chloride 103 96 - 110 mmol/L LAB CHEMISTRY METHOD 11/19/2024 4:18 PM [facility] CO2 31 21 - 32 mmol/L LAB CHEMISTRY METHOD 11/19/2024 4:18 PM [facility] Anion Gap 3 3 - 11 LAB CHEMISTRY METHOD 11/19/2024 4:18 PM [facility] Glucose 92 70 - 100 mg/dL LAB CHEMISTRY METHOD 11/19/2024 4:18 PM [facility] BUN 14 5 - 25 mg/dL LAB CHEMISTRY METHOD 11/19/2024 4:18 PM [facility] Creatinine 0.87 0.70 - 1.30 mg/dL LAB CHEMISTRY METHOD 11/19/2024 4:18 PM [facility] eGFR 109 >=60 mL/min/1. 73m2 LAB CHEMISTRY METHOD 11/19/2024 4:18 PM EDT [facility] Comment:Calculation based on the Chronic Kidney Disease Epidemiology Collaboration (CKD-EPI) equation refit without adjustment for race. BUN/Creatinine Ratio 16.1 LAB CHEMISTRY METHOD 11/19/2024 4:18 PM T [facility] Calcium 9.8 8.5 - 10.5 mg/dL LAB CHEMISTRY METHOD 11/19/2024 4:18 PM [facility] AST (SGOT) 24 10 - 42 unit/L LAB CHEMISTRY METHOD 11/19/2024 4:18 PM [facility] ALT (SGPT) 22 10 - 60 unit/L LAB CHEMISTRY METHOD 11/19/2024 4:18 PM [facility] Alkaline Phosphatase 111 42 - 121 unit/L LAB CHEMISTRY METHOD 11/19/2024 4:18 PM [facility] Total Protein 7.0 6.0 - 8.0 g/dL LAB CHEMISTRY METHOD 11/19/2024 4:18 PM [facility] Albumin 4.2 3.2 - 5.0 g/dL LAB CHEMISTRY METHOD 11/19/2024 4:18 PM [facility] Total Bilirubin 0.4 0.0 - 1.4 mg/dL LAB CHEMISTRY METHOD 11/19/2024 4:18 PM [facility] Blood Venous blood specimen / Unknown Venipuncture / Unknown 11/19/2024 2:52 PM EDT 11/19/2024 3:29 PM EDT us [facility] BLOOD ORDERABLES Fin al Result [facility] [address] [place] [address], documented in this encounter Visit Diagnoses Diagnosis Schizophrenia, unspecified type (CMS/HCC V24, CMS/HCC V28)- Primary Suicidal ideation documented in this encounter Orders Consult Count Last Ordered Date First Orde red Date IP CONSULT TO RADIATION CONTROL TECHNICIAN 1 11/19/2024 documented in this encounter Care Teams Radial Saw Operator Relationship Specialty Start Date End Date Physician, No Pcp PCP - General 05/21/24 documented as of this encounter
--- OUTSIDE RECORDS SUMMARY | 2024-11-20 14:27 | XMS_ITS | Encounter Summary ---
Author Organization [employer] Address [address] [place] [address] Care Team Providers Care Group Therapy Counselor Name Role Phone Physician, No Pcp Primary Care Provider Unavaila ble Reason for Visit * Reason Comments Psychiatric Evaluation si Encounter Details Date Type Department Care Team (Late st Contact Info) Description 11/20/2024 2:27 PM EDT - 11/21/2024 2:[address] [facility] [address] [place] [id number] Iliana Swenson MD [address] [place] [id number] Sergio Quiles MD [address] [place] [id number] Carole Coulter MD [address] [place] [address] Yuliana Rubalacva MD [address] [place] [address] Auditory hallucinations (Primary Dx); Suicidal ideation Discharge Disposition: Psychiatric Hospital Social History Tobacco Use Types Packs/Day Years [...] Sign Reading Time Taken Comments Blood Pressure 108/73 11/21/2024 8:51 AM EDT Pulse 62 11/21/2024 8:51 AM EDT Temperature 36.6 C (97.9 F) 11/21/2024 8:51 AM EDT Respiratory Rate 18 11/21/2024 8:51 AM EDT Oxygen Saturation 100% 11/21/2024 8:51 AM EDT Inhaled Oxygen Concentration - - Weight 99.8 kg (220 lb) 11/20/2024 2:23 PM EDT Height 172.7 cm (5' 8 ) 11/20/2024 2:23 PM EDT Body Mass Index 33.45 11/20/2024 2:23 PM EDT documented in this encounter Functional [...] Bud Chavez RN documented in this encounter Medications at Time of Discharge buprenorphine-nal oxone (SUBOXONE) 8-2 mg [address] film Place 1 film under the tongue 3 (three) times a day. 11/05/2024 documented as of this encounter Discharge Disposition Disposition Code Departure Means Destination Comment [facility] M 5 documented in this encounter Progress Notes * Lorraine Lopez LCSW - 11/21/2024 9:22 AM EDT BED FOUND- Placement has been identified to [facility], , Dr. Molina Rod. ETA will be determined during nurse to nurse. * Carole Coulter MD - 11/20/2024 10:04 PM EDT Reddy Dela Cruz This patient's care was signed out to me by the offgoing provider. Please see her/his note for further details regarding initial presentation, history of present illness, physical exam, and medical decision making. At time of signout, the following was pending: psychiatric placement for auditory hallucinations and SI No acute needs during my shift. Patient's care was handed over to the oncoming provider. ED Course as of 11/21/24 0849 [facility] Nov 20, 20241934 Buprenorphine Screen Urine(!): Positive [AM] 1934 Cannabinoid (THC) Screen, Ur(!): Positive [AM] 1934 Patient is medically cleared for psychiatric placement [AM] [facility] Nov 21, [address] Coulter: here for SI, AH which are chronic, odd behavior this visit with crisis, will admit, pending bed search [RG] ED Course User Index [AM] Iliana Swenson MD [RG] Yuliana Rubalcava MD Clinical Impressions as of 11/21/24 0849 Auditory hallucinations Suicidal ideation No orders to display Labs Reviewed BUPRENORPHINE SCREEN, URINE - Abnormal Result Value Buprenorphine Screen Urine Positive (*) Narrative: Assay cutoff 5 ng/mL Semi-quantitative assay for screening purposes only. Unconfirmed screening result should not be used for non-medical purposes. *ALTERNATE METHOD CONFIRMATION DONE UPON REQUEST ONLY* DRUG ABUSE SCREEN 8A PANEL, URINE - Abnormal Amphetamine Screen, Ur Negative Barbiturate Screen, Ur Negative Benzodiazepine Screen, Ur Negative Cocaine Screen, Ur Negative Opiate Screen, Ur Negative Cannabinoid (THC) Screen, Ur Positive (*) Oxycodone Screen, Ur Negative Fentanyl, Ur Negative Narrative: Assay cutoffs: Amphetamines 1000 ng/mL Barbiturates 200 ng/mL Benzodiazepines 200 ng/mL Cocaine 300 ng/mL Fentanyl 1 ng/mL Opiates 300 ng/mL Oxycodone 100 ng/mL THC 50 ng/mL Semi-quantitative assay for screening purposes only. Unconfirmed screening result should not be used for non-medical purposes. *ALTERNATE METHOD CONFIRMATION DONE UPON REQUEST ONLY* SALICYLATE LEVEL - Abnormal Salicylate Level <1.7 (*) ACETAMINOPHEN LEVEL - Abnormal Acetaminophen Level <2.0 (*) COMPLETE BLOOD COUNT - Abnormal WBC 8.6 RBC 4.60 Hemoglobin 13.7 Hematocrit 41.6 (*) MCV 89.7 MCH 29.5 MCHC 32.9 RDW 12.9 Platelets 300 MPV 8.5 NRBC 0.0 NRBC Absolute 0.00 METHADONE SCREEN, URINE - Normal Methadone Screen, Urine Negative PHENCYCLIDINE, URINE - Normal PCP Scrn, Ur Negative BASIC METABOLIC PANEL - Normal Sodium 136 Potassium 4.9 Chloride 101 CO2 32 Anion Gap 3 Glucose 92 BUN 14 Creatinine 0.92 eGFR 105 BUN/Creatinine Ratio 15.2 Calcium 9.2 ETHANOL - Normal Ethanol Level 3 Clinical Impression(s): Final diagnoses: [R44.0] Auditory hallucinations [R45.851] Suicidal ideation Send to Specialty Department Previous Medications BUPRENORPHINE-NALOXONE (SUBOXONE) 8-2 MG [address]M [address] 1 film under the tongue 3 (three) times a day. ED Medication Administration from 11/20/2024 1419 to 11/20/2024 2204 Date/Time Order Dose Route Action Action by 11/20/20242006 EDT buprenorphine-naloxone (SUBOXONE) 8-2 mg per SL tablet 1 tablet 0 tablet sublingual Hold Vimal Floyd * An Devine RN - 11/20/2024 2:21 PM EDT Pt reports has been hearing voices sin e yesterday , sts was here yesterday and seen for same complaint . +si * Iliana Swenson MD - 11/20/2024 2:19 PM EDT Images from the original note were not included. [facility] EMERGENCY DEPARTMENT ENCOUNTER Patient: Reddy Dela Cruz MR# [id number] Time of Service: 11/20/2024 2:27 PM History Chief Complaint Patient presents with Psychiatric Evaluation yany Dela Cruz is a 43 y.o. male who presents to the ED with chief complaint Psychiatric Evaluation (si) . Patient here due to auditory hallucinations and suicidal ideation. To me he says he is here because he is stressing out . States that he is feeling stressed in regards to not being around his family and feeling lonely being here by himself. He recently has a new apartment. He states he does not have friends or support system. He denies SI and HI to me. He does not take any psychiatric medications for his auditory hallucinations. He is on Suboxone. Patient had a very different interaction with drying can worker here, discussed potentially getting a gun and harming someone else. Was appearing bessy very agitated and different from his baseline. Patient has been in and out of the hospital most d ays this week. ROS Negative except for HPI. Allergies: Patient has no known allergies. Past Medical History: Diagnosis Date Major depressive disorder, recurrent, severe with psychotic features ([facility] V24, [facility] V28) 05/2024 Opioid dependence ([facility] V24, [facility] V28) on suboxone Schizophrenia ([facility] V24, [facility] V28) There is no problem list on file for this patient. No past surgical history on file. No family history on file. Social History Tobacco Use Smoking status: Every Day Types: Cigarettes Substance Use Topics Alcohol use: Not Currently Drug use: Never Physical Exam Vitals: 11/20/24 1422 11/20/24 1423 BP: (!) 132/100 Pulse: 74 Resp: 16 Temp: 36.7 ??C (98.1 ??F) 36.7 ??C (98.1 ??F) TempSrc: Oral Oral SpO2: 97% Weight: 95.3 kg (210 lb) 99.8 kg (220 lb) Height: 1.727 m (68 ) 1.727 m (68 ) General Appearance: No acute distress Skin: Dry Eyes: EOMI, no scleral icterus HENT: Normocephalic, atraumatic, moist mucous membranes Neck: Supple, normal range of motion Cardiovascular: Regular rate and rhythm, no murmur, 2+ radial pulses Respiratory: Lungs clear to auscultation bilaterally, no respiratory distress, no wheezing or rhonchi Abdomen: Soft, non-tender, non-distended MSK: No edema or tenderness Neurologic: Awake, alert, no obvious deficits, moving all extremities Psychiatric: Appropriate, cooperative Results Results for orders placed or performed during the hospital encounter of 11/20/24 Buprenorphine screen, urine Collection Time: 11/20/24 3:53 PM Result Value Ref Range Buprenorphine Screen Urine Positive (A) Negative Methadone, urine Collection Time: 11/20/24 3:53 PM Result Value Ref Range Methadone Screen, Urine Negative Negative Phencyclidine, urine Collection Time: 11/20/24 3:53 PM Result Value Ref Range PCP Scrn, Ur Negative Negative Drug abuse screen 8a panel, urine Collection Time: 11/20/24 3:53 PM Result Value Ref Range Amphetamine Screen, Ur Negative Negative Barbiturate Screen, Ur Negative Negative Benzodiazepine Screen, Ur Negative Negative Cocaine Screen, Ur Negative Negative Opiate Screen, Ur Negative Negative Cannabinoid (THC) Screen, Ur Positive (A) Negative Oxycodone Screen, Ur Negative Negative Fentanyl, Ur Negative Negative Salicylate level Collection Time: 11/20/24 4:52 PM Result Value Ref Range Salicylate Level <1.7 (L) 2.0 - 29.0 mg/dL Acetaminophen level Collection Time: 11/20/24 4:52 PM Result Value Ref Range Acetaminophen Level <2.0 (L) 10.0 - 30.0 mcg/mL Basic metabolic panel Collection Time: 11/20/24 4:52 PM Result Value Ref Range Sodium 136 133 - 145 mmol/L Potassium 4.9 3.5 - 5.5 mmol/L Chloride 101 96 - 110 mmol/L CO2 32 21 - 32 mmol/L Anion Gap 3 3 - 11 Glucose 92 70 - 100 mg/dL BUN 14 5 - 25 mg/dL Creatinine 0.92 0.70 - 1.30 mg/dL eGFR 105 >=60 mL/min/1.73m2 BUN/Creatinine Ratio 15.2 Calcium 9.2 8.5 - 10.5 mg/dL Ethanol Collection Time: 11/20/24 4:52 PM Result Value Ref Range Ethanol Level 3 0 - 10 mg/dL Complete blood count Collection Time: 11/20/24 4:52 PM Result Value Ref Range WBC 8.6 4.8 - 10.8 K/mcL RBC 4.60 4.50 - 5.50 M/mcL Hemoglobin 13.7 13.5 - 17.5 g/dL Hematocrit 41.6 (L) 42.0 - 54.0 % MCV 89.7 79.0 - 98.0 FL MCH 29.5 27.0 - 32.0 pcg MCHC 32.9 32.0 - 37.0 g/dL RDW 12.9 11.0 - 15.0 % Platelets 300 130 - 400 K/mcL MPV 8.5 7.0 - 11.0 FL NRBC 0.0 <1.0 % NRBC Absolute 0.00 <0.10 K/mcL No orders to display Procedures Medical Decision Making 43-year-old male presenting due to ongoing auditory hallucinations and suicidal ideation. He had a very different interaction with me than he did with the drying can worker. Was quite agitated when discussing with the drying can worker. Unclear if any drug use today the patient denies. His only medication is Suboxone. Patient has been in and out of the hospitalthis week. Plan for psychiatric screening labs today, plan for inpatient psychiatric placement. Labs ordered in ED independently reviewed by me. My interpretation of the labs and/or imaging per ED course. ED Course as of 11/21/24 1524 Wed Nov 20, 20241934 Buprenorphine Screen Urine(!): Positive [AM] 1934 Cannabinoid (THC) Screen, Ur(!): Positive [AM] 1934 Patient is medically cleared for psychiatric placement [AM] Ruth Ann Nov 21, [address] Coulter: here for SI, AH which are chronic, odd behavior this visit with crisis, will admit, pending bed search [RG] 1057 Per crisis note: BED FOUND- Placement has been identified to [facility], , Dr. Molina Rod. ETA will be determined during nurse to nurse. [RG] ED Course User Index [AM] Iliana Swenson MD [RG] Yuliana Rubalcava MD Clinical Impressions as of 11/21/24 1524 Auditory hallucinations Suicidal ideation External Charts Reviewed: ED visit from last few days prior Discussed management with other providers: coke worker Disposition: pending IP psych CLINICAL IMPRESSION: 1. Auditory hallucinations 2. Suicidal ideation 11/20/2024 MD Iliana Ignacio MD 11/20/24 1502 Iliana Swenson MD 11/20/24 1607 Iliana Swenson MD 11/20/24 1939 Iliana Swenson MD 11/21/24 1524 documented in this encounter Consult Notes * Audelia Fritz - 11/20/2024 4:07 PM EDTAssociated Order(s): IP CONSULT TO RESTAURANT ASSISTANT MANAGER Images from the original note were not included. Behavioral Health Services - Crisis Assessment Important times Time of arrival: 11/20/24 2:47 pm Time of referral: 11/20/24 3:00 pm Time of readiness: 11/20/24 3:15 pm Time assessment started: 11/20/24 3:30 pm Time of disposition: 11/20/24 4:30 pm Location: [facility] Emergency Room Consulted case with: Lorraine Lopez LCSW Insurance information: Insurance: Med A&B Verified by: Audelia Reason for Consultation / Presenting Problem: Reddy Dela Cruz is being seen today for a consultive service at the request of Iliana Swenson MD to assess risk and identify appropriate level of care. He [id number] male with a history of schizophrenia, polysubstance abuse on Suboxone and chronic tobacco use presents to the ED with suicidal ideation and auditory hallucination. Patient states that HEhad send patient has been ongoing for several [...] any other physical complaints. Reddy reported I keep stressing, I can't do this, I am not safe out there, I can't be alone . Hestated I [facility] . He stated one of my cousin's was murdered and now they are after me and I will get a gun and kill them . He stated my cousin was murdered a year ago . Reddy reported I don't feel safe and I may do something to me . He stated I can't promise I wont hurt anyone . He then was holding his head saying the voices are driving me crazy, they tell me this and then tell me that . He reported maybe if I go to detox even and get off the saboxone, maybe it is that . History of Present Illness: Reddy is a 43 y.o. male with Chief Complaint Patient presents with Psychiatric Evaluation si Social/Educational History: Guardian - if Yes, provide contact information: self Status: N/A State Agency Involvement: None reported Luis Miguel's Order: None reported Marital Status: single Alternative Placement Details: N/A Living Situation for patient: Homeless/[facility] [place] [facility] Household Members/Age: N/A Friendships/Family/Social Peer Support/Relationships: Reddy reported he has a few friends who are supportive. Highest level of education: 6th grade Comments (Include Learning Needs): None reported Occupation: unemployed Employment/Extracurricular Activities/Hobbies: unemployed Limitations of Daily Activities: None reported Strengths/Supports: Reddy is able to access his needs. Collaterals, contact information, and engagement level: Therapist: friends of the homeless [phone] Psychiatrist: None reported PCP: Unknown Family: None reported Other: [place] [facility] counselor Ms. Baxter [phone] Mental Status Speech: WNL Eye Contact: WNL Motor Activity: Slowed Mood: Anxious Affect: Flat Sleep: Poor Appetite: Fair Memory: Mild Impairment Attention / Concentration: Mild Impairment Behavior: Cooperative Appearance: Hallucinations: Auditory and Visual Delusions: Paranoid Thought Content: Phobic SI: Would not answer HI: Would not answer Thought Process: Blocked Orientation Impairment: Person and place Insight: Poor Judgment: Poor Impulse Control: WNL Substance Use History (Including family history): Alcohol I drink socially. Not for a while Marijuana onset age 12, daily. Last use 1 weeks ago. Heroin onset age 18, daily, snort, 17-25 bags. Last use 6 years ago. Utox Results: BAL pending TOX pending Substance Use Treatment History: Reddy reported a history of detox admissions. He denies any history of long term care administrator substance abuse programs. He is on agonist therapy (suboxone) with [facility]. Mental Health Treatment History: Outpatient Mental Health Treatment: None reported Previous or Current Psychological Diagnosis: Major Depression and opioid use. Prior Psychiatric Hospitalizations/Residential Treatment Facilities: Reddy is known to [facility]. He denies any history of suicide attempts. Reddy reported a history of inpatient psychiatric admissions. He stated his last hospitalization was to [facility] in 06/28. Other Comments Regarding Mental Health Treatment History: None reported Mental Health Concerns in Family: None reported Trauma History: Reddy denies any history of sexual abuse or other trauma. Medications: Scheduled Meds: buprenorphine-naloxone, 1 tablet, sublingual, TID Continuous Infusions: PRN Meds: Risk Assessment: Self-Harm: None Suicidal Behavior: Did not answer Homicidal Behavior: Did not answer Physical Assault: None Physical Aggression: None Property Damage: None Verbal Aggression: None Family history of suicide: None reported Protective Factors: Stable housing Able to access his needs. Risk Factors: Presented with paranoid stating he was going to shoot the people who are following him and killed his cousin. Hearing voices that will not stop I can't take it anymore . Vague suicidal ideation. Suicide Risk: Based on patient's history and current presentation, their level of risk for intentional lethal harm is considered Moderate Safety Plan Completed: yes Going inpatient for safety, stabilization and medication evaluation. Interventions: Used active listening Response to interventions: Reddy was having difficulty engaging fully in the assessment. DSM-5TR Diagnosis: F33.3 Major Depression recurrent, severe with psychosis F70 Intellectual Developmental D/O, mild R/O psychotic D/O Plan: Reddy was reporting he cannot take the voices anymore and is paranoid stating he was going to shoot the people who are after him. He would not answer if he wanted to harm himself and was shaking hs leg. He has been presenting to the ER almost daily all this week. He is at moderate risk for suicidal and homicidal plan and intent. He would benefit from inpatient level of care for safety, stabilization and medication evaluation. He is on a section 12 involuntary. Recommendations were discussed with requesting provider. It was a pleasure to assist Reddy Dela Cruz here at [facility]. This report is written and finalized by: Audelia Fritz MS Behavioral Health Specialist [facility] (Tel): [phone] / : [phone] documented in this encounter Plan of Treatment Not on file documented as of this encounter Procedures Procedure Name Priority Date/Time Associated Diagnosis Comments COMPLETE BLOOD COUNT STAT 11/20/2024 4:52 PM EDT ETHANOL STAT 11/20/2024 4:52 PM EDT ACETAMINOPHEN LEVEL STAT 11/20/2024 4 :52 PM EDT SALICYLATE LEVEL STAT 11/20/2024 4:52 PM EDT BASIC METABOLIC PANEL STAT 11/20/2024 4:52 PM EDT DRUG ABUSE SCREEN 8A PANEL, URINE STAT 11/20/2024 3:53 PM EDT BUPRENORPHINE SCREEN, URINE STAT 11/20/2024 3:53 PM EDT METHADONE SCREEN, URINE STAT 11/20/2024 3:53 PM EDT PHENCYCLIDINE, URINE STAT 11/20/2024 3:53 PM EDT documented in this encounter Results * (ABNORMAL) Complete blood count (11/20/2024 4:52 PM EDT) [facility] WBC 8.6 4.8 - 10.8 K/mcL LAB HEMETOLOGY METHOD 11/20/2024 5:[address] [facility] RBC 4.60 4.50 - 5.50 M/mcL LAB HEMETOLOGY METHOD 11/20/2024 5:[address] [facility] Hemoglobin 13.7 13.5 - 17.5 g/dL LAB HEMETOLOGY METHOD 11/20/2024 5:[address] [facility] Hematocrit 41.6(L) 42.0 - 54.0 % LAB HEMETOLOGY METHOD 11/20/2024 5:[address] [facility] MCV 89.7 79.0 - 98.0 FL LAB HEMETOLOGY METHOD 11/20/2024 5:[address] [facility] MCH 29.5 27.0 - 32.0 pcg LAB HEMETOLOGY METHOD 11/20/2024 5:[address] [facility] MCHC 32.9 32.0 - 37.0 g/dL LAB HEMETOLOGY METHOD 11/20/2024 5:[address] [facility] RDW 12.9 11.0 - 15.0 % LAB HEMETOLOGY METHOD 11/20/2024 5:[address] [facility] Platelets 300 130 - 400 K/mcL LAB HEMETOLOGY METHOD 11/20/2024 5:[address] [facility] MPV 8.5 7.0 - 11.0 FL LAB HEMETOLOGY METHOD 11/20/2024 5:[address] [facility] NRBC 0.0 <1.0 % LAB HEMETOLOGY METHOD 11/20/2024 5:[address] [facility] NRBC Absolute 0.00 <0.10 K/mcL LAB HEMETOLOGY METHOD 11/20/2024 5:[address] [facility] Blood Venous blood specimen / Unknown Venipuncture / Unknown 11/20/2024 4:52 PM EDT 11/20/2024 5:11 PM EDT us Iliana Swenson MD LAB BLOOD ORDERABLES Final Resul t [facility] [address] [place] [address], * Ethanol (11/20/2024 4:52 PM EDT) [facility] Ethanol Level 3 0 - 10 mg/dL LAB CHEMISTRY METHOD 11/20/2024 5:[address] [facility] Blood Venous blood specimen / Unknown Venipuncture / Unknown 11/20/2024 4:52 PM EDT 11/20/2024 5:11 PM EDT Iliana Swenson MD LAB BLOOD ORDERABLES Final Resul t [facility] [address] [place] [address], * Basic metabolic panel (11/20/2024 4:52 PM EDT) [facility] Sodium 136 133 - 145 mmol/L LAB CHEMISTRY METHOD 11/20/2024 5:38 PM [facility] Potassium 4.9 3.5 - 5.5 mmol/L LAB CHEMISTRY METHOD 11/20/2024 5:38 PM [facility] Chloride 101 96 - 110 mmol/L LAB CHEMISTRY METHOD 11/20/2024 5:38 PM [facility] CO2 32 21 - 32 mmol/L LAB CHEMISTRY METHOD 11/20/2024 5:38 PM [facility] Anion Gap 3 3 - 11 LAB CHEMISTRY METHOD 11/20/2024 5:38 PM [facility] Glucose 92 70 - 100 mg/dL LAB CHEMISTRY METHOD 11/20/2024 5:38 PM [facility] BUN 14 5 - 25 mg/dL LAB CHEMISTRY METHOD 11/20/2024 5:38 PM [facility] Creatinine 0.92 0.70 - 1.30 mg/dL LAB CHEMISTRY METHOD 11/20/2024 5:38 PM [facility] eGFR 105 >=60 mL/min/1. 73m2 LAB CHEMISTRY METHOD 11/20/2024 5:[address] [facility] Comment:Calculation based on the Chronic Kidney Disease Epidemiology Collaboration (CKD-EPI) equation refit without adjustment for race. BUN/Creatinine Ratio 15.2 LAB CHEMISTRY METHOD 11/20/2024 5:[address] [facility] Calcium 9.2 8.5 - 10.5 mg/dL LAB CHEMISTRY METHOD 11/20/2024 5:[address] [facility] Blood Venous blood specimen / Unknown Venipuncture / Unknown 11/20/2024 4:52 PM EDT 11/20/2024 5:11 PM EDT us Iliana Swenson MD LAB BLOOD ORDERABLES Final Resul t Performing Organization Address [facility]/ZIP Co de Phone Number [facility] [address] [place] [address], [place] [phone] * (ABNORMAL) Acetaminophen level (11/20/2024 4:52 PM EDT) Acetaminophen Level <2.0(L) 10.0 - 30.0 mcg/mL LAB CHEMISTRY METHOD 11/20/2024 5:[address] [facility] Blood Venous blood specimen / Unknown Venipuncture / Unknown 11/20/2024 4:52 PM EDT 11/20/2024 5:11 PM EDT us Iliana Swenson MD LAB BLOOD ORDERABLES Final Resul t [facility] [address] [place] [address], [place] [phone] * (ABNORMAL) Salicylate level (11/20/2024 4:52 PM EDT) Salicylate Level <1.7(L) 2.0 - 29.0 mg/dL LAB CHEMISTRY METHOD 11/20/2024 5:[address] [facility] Blood Venous blood specimen / Unknown Venipuncture / Unknown 11/20/2024 4:52 PM EDT 11/20/2024 5:11 PM EDT us Iliana Swenson MD LAB BLOOD ORDERABLES Final Resul t [facility] [address] [place] [address], * (ABNORMAL) Drug abuse screen 8a panel, urine (11/20/2024 3:53 PM EDT) Pathologist [facility] Amphetamine Screen, Ur Negative Negative LAB CHEMISTRY METHOD 5 5:[address] [facility] Comment:Certain OTC medicati ons containing ephedrine, phenylephrine, pseudoephedrine and phenylpropanolamine can cause false positive results. Barbiturate Screen, Ur Negative Negative LAB CHEMISTRY METHOD 5 5:[address] [facility] Benzodiazepine Screen, Ur Negative Negative LAB CHEMISTRY METHOD 5 5:[address] [facility] Cocaine Screen, Ur Negative Negative LAB CHEMISTRY METHOD 5 5:[address] [facility] Opiate Screen, Ur Negative Negative LAB CHEMISTRY METHOD 5 5:[address] [facility] Cannabinoid (THC) Screen, Ur Positive(A ) Negative LAB CHEMISTRY METHOD 5 5:[address] [facility] Comment:Specimens from patie nts taking pantoprazole sodium (Protonix) have been shown to produce false positive results. Oxycodone Screen, Ur Negative Negative LAB CHEMISTRY METHOD 5 5:[address] [facility] Fentanyl, Ur Negative Negative LAB CHEMISTRY METHOD 5 5:[address] [facility] Urine Urine specimen obtained by clean catch procedure / Unknown Non-blood Collection / Unknown 11/20/2024 3:53 PM EDT 11/20/2024 4:[address] [facility] - 11/20/2024 5:15 PM EDT Assay cutoffs: Amphetamines 1000 ng/mL Barbiturates 200 ng/mL Benzodiazepines 200 ng/mL Cocaine 300 ng/mL Fentanyl 1 ng/mL Opiates 300 ng/mL Oxycodone 100 ng/mL THC 50 ng/mL Semi-quantitative assay for screening purposes only. Unconfirmed screening result should not be used for non-medical purposes. *ALTERNATE METHOD CONFIRMATION DONE UPON REQUEST ONLY* Iliana Swenson MD LAB URINE ORDERABLES Final Resul t Performing Organization Address [facility] de Phone Number [facility] [address] [place] [address], [place] [phone] * Phencyclidine, urine (11/20/2024 3:53 PM EDT) PCP Scrn, Ur Negative Negative LAB CHEMISTRY METHOD 11/20/2024 5:[address] [facility] Comment: Assay cutoff 25 ng/mL Semi-quantitative assay for screening purposes only. Unconfirmed screening result should not be used for non-medical purposes. *ALTERNATE METHOD CONFIRMATION DONE UPON REQUEST ONLY* Urine Urine specimen obtained by clean catch procedure / Unknown Non-blood Collection / Unknown 11/20/2024 3:53 PM EDT 11/20/2024 4:44 PM EDT Iliana Swenson MD LAB URINE ORDERABLES Final Resul t Performing Organization Address [facility]/ZIP Co de Phone Number [facility] [address] [place] [address], [place] [phone] * Methadone, urine (11/20/2024 3:53 PM EDT) Methadone Screen, Urine Negative Negative LAB CHEMISTRY METHOD 11/20/2024 5:[address] [facility] Comment: Assay cutoff 300 ng/mL Semi-quantitative assay for screening purposes only. Unconfirmed screening result should not be used for non-medical purposes. *ALTERNATE METHOD CONFIRMATION DONE UPON REQUEST ONLY* Urine Urine specimen obtained by clean catch procedure / Unknown Non-blood Collection / Unknown 11/20/2024 3:53 PM EDT 11/20/2024 4:44 PM EDT us Iliana Swenson MD LAB URINE ORDERABLES Final Resul t Performing Organization Address [facility] de Phone Number [facility] [address] [place] [address], [place] [phone] * (ABNORMAL) Buprenorphine screen, urine (11/20/2024 3:53 PM EDT) [facility] Buprenorphine Screen Urine Positive (A) Negative LAB CHEMISTRY METHOD 11/20/2024 5:[address] [facility] Urine Urine specimen obtained by clean catch procedure / Unknown Non-blood Collection / Unknown 11/20/2024 3:53 PM EDT 11/20/2024 4:[address] [facility] - 11/20/2024 5:15 PM EDT Assay cutoff 5 ng/mL Semi-quantitative assay for screening purposes only. Unconfirmed screening result should not be used for non-medical purposes. *ALTERNATE METHOD CONFIRMATION DONE UPON REQUEST ONLY* us Iliana Swenson MD LAB URINE ORDERABLES Final Resul t Performing Organization Address [facility] de Phone Number [facility] [address] [place] [address], [place] [phone] documented in this encounter Visit Diagnoses Diagnosis Auditory hallucinations- Primary Hallucinations Suicidal ideation documented in this encounter Administered Medications Active Administered Medications - up to 3 most recent administrations Medication Order MAR Action Action Date Dose Rate Site buprenorphine-naloxone (SUBOXONE) 8-2 mg per SL tablet 1 tablet 1 tablet, sublingual, 3 times daily, First dose on Mon11/20/24 at 2100, - After the medication is completely dissolved, instruct the patient to take a large sip of water, swish it around teeth and gums, and swallow. - Patient should wait at least 1 hour before brushing teeth to avoid damage to their teeth. Given 11/21/2024 8:47 AM EDT 1 tablet Given 11/21/2024 5:34 AM EDT 1 tablet documented in this encounter Active and Recently Administered Medications Times are shown in EDT. Scheduled Medication Order 11/19/2024 11/20/2024 11/21/2024 buprenorphine-naloxone (SUBOXONE) 8-2 mg per SL tablet 1 tablet 1 tablet, sublingual, 3 times daily, First dose on Mon11/20/24 at 2100, - After the medication is completely dissolved, instruct the patient to take a large sip of water, swish it around teeth and gums, and swallow. - Patient should wait at least 1 hour before brushing teeth to avoid damage to their teeth. 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
[2024-11-21 15:00] VITALS: BP 110/76; PULSE 72; RESP 16; TEMP 36.4; O2SAT 100
--- NOTE | 2024-11-21 15:14 | P.CONHOSP_ITS ---
History of Present Illness Data of Consult Service Date: 11/21/24 Primary Care Provider: None Physician HPI Reason for consult: Medical H&P 43-year-old male with past medical history of major depressive disorder, opioid dependence on Suboxone and schizophrenia, tobacco use who presented to [facility] Emergency Department with auditory hallucinations and suicidal ideation. Patient also expressed potentially getting a gun amd harming someone else. His tox screen was positive for both buprenorphine and marijuana. Electrolytes without evidence of abnormality, CBC without leukocytosis or anemia. On exam he has no medical concerns, denies any shortness of breath, dizziness lightheadedness abdominal pain or any other concerning symptoms. No medical concerns. Review of Systems Review of Systems: Denies any shortness of breath, chest pain, dizziness, lightheadedness, abdominal pain or discomfort, nausea vomiting or diarrhea PMFSH Social History Advance Directives: No Advance Directives Information Provided: No Physical Exam Vital Signs and Narrative: Alert and oriented X3, able to give good history. Neuro: CN II-X11 intact, no deficits, visual acuity intact EYES: PERRLA, EOM intact ENT: Hearing intact, lips moist Cardiac: S1 S2 RRR, No ectopy Pulmonary: lungs clear to auscultation, No increased WOB. Abdominal: BS active in all 4 quadrants, no guarding or tenderness MSK: Strength 5/5 upper and lower extremities, Ambulates with steady gait : Deferred Extremities: No edema in lower extremities Psych: mood stable, Quiet and cooperative. Skin: Warm and dry, Intact Assessment and Plan (1) Major depressive disorder: Status: Acute Plan 43-year-old male with past medical history of major depressive disorder, opioid dependence on Suboxone and schizophrenia, tobacco use who presented to [facility] Emergency Department with auditory hallucinations, suicidal and homicidal ideation. Major depressive disorder/opioid dependence on Suboxone and schizophrenia Treatment per psychiatric team Thank you for allowing me to participate in the care of this patient. Will follow as needed, please notify medical provider with any changes in condition or concerns.
--- OUTSIDE RECORDS SUMMARY | 2024-11-21 16:11 | XMS_ITS | Clinical Summary ---
Author Organization [facility] Address [address] [place] [phone] Phone Care Team Providers Care Chair Pad Maker Name Role Phone Physician, No Pcp Primary Care Provider Unavaila ble Allergies No known active allergies Medications buprenorphine-na loxone (SUBOXONE) 8-2 [address] film [address] 1 film under the tongue 3 (three) times a day. 11/05/2024 Active Active Problems No known active problems Encounters Date Type Department Care Team Description 11/20/2024 2:27 PM EDT - 11/21/2024 2:00 PM EDT [facility] Emergency [address] [place] [phone] Iliana Swenson MD Ziebro, John, MD Kokkinos, Erika, MD Gordon, Ruth, MD Auditory hallucinations (Primary Dx); Suicidal ideation Discharge Disposition: [facility] 11/19/2024 2:13 PM EDT - 11/19/2024 4:31 PM EDT Emergency [facility] Emergency [address] [place] [phone] Robert Rebolledo MD Schizophrenia, unspecified type (CMS/HCC V24, CMS/HCC V28) (Primary Dx); Suicidal ideation Discharge Disposition: Home or Self Care 11/18/2024 5:00 PM EDT - 11/18/2024 6:51 PM EDT [facility] Emergency [address] [place] [phone] Discharge Disposition: Home or Self Care 11/17/2024 2:55 PM EDT - 11/17/2024 6:45 PM EDT [facility] Emergency [address] [place] [phone] Amardey-Robert Rick MD Ziebro, John, MD Behavioral problem (Primary Dx) Discharge Disposition: Home or Self Care 11/12/2024 4:18 PM EDT - 11/12/2024 6:27 PM EDT [facility] Emergency [address] [place] [phone] Iliana Swenson MD Auditory hallucinations (Primary Dx) Discharge Disposition: Home or Self Care 09/29/2024 5:28 PM EDT - 09/29/2024 9:34 PM EDT [facility] Emergency [address] [place] [phone] Raulito Vance MD Chronic schizophrenia ([facility] V24, [facility] V28) (Primary Dx) Discharge Disposition: Home or Self Care 09/28/2024 8:25 PM EDT - 09/29/2024 9:52 AM EDT [facility] Emergency [address] [place] [phone] Jef Bryant MD Kokkinos, Erika, MD Notash, Mark, MD Suicidal ideation (Primary Dx); Depression, unspecified depression type Discharge Disposition: Home or Self Care 09/27/2024 2:21 PM EDT - 09/27/2024 7:06 PM EDT [facility] Emergency [address] [place] [phone] Panfilo Dow MD Schizophrenia, unspecified type ([facility] V24, [facility] V28) (Primary Dx); Hallucinations; Dental abscess Discharge Disposition: Home or Self Care 08/27/2024 8:30 PM EDT - 08/28/2024 11:09 AM EDT [facility] Emergency [address] [place] [phone] Raulito Vance MD Sinus congestion (Primary Dx); Rhinovirus; Suicidal ideation Discharge Disposition: Home or Self Care 08/25/2024 12:48 AM EDT - 08/25/2024 9:39 AM EDT [facility] Emergency [address] [place] [phone] Housing insecurity (Primary Dx); Rhinovirus Discharge Disposition: Home or Self Care from Last 3 Months Medical History Medical History Date Comments Schizophrenia ([facility] V24, [facility] V28) Opioid dependence ([facility] V24, [facility] V28) on suboxone Major depressive disorder, r ecurrent, severe with psychotic features ([facility] V24, [facility] V28) 05/2024 Intellectual developmental disorder, mild 2024 per crisis assemssment Social History Tobacco Use Types Packs/Day Years Used Date Smoking Tobacco: Every Day Cigarettes Tobacco Cessation:Ready to Q uit: Not Asked Alcohol Use Standard Drinks/Week Comments Not Currently 0 (1 standard drink = 0.6 oz pur e alcohol) Sex and Gender Information Value Date Recorded Sex Assigned at Male 05/21/2024 5:40 PM EDT Legal Sex Male 2:59 AM EST Gender Identity Male 05/21/2024 5:40 PM EDT Sexual Orientation Straight 05/21/2024 5: 40 PM EDT Obstetrics History Last Filed Vital Signs Vital Sign Reading [...] Mass Index 33.45 11/20/2024 2:23 PM EDT Plan of Treatment Health Maintenance Due Date Last Done Comments DTaP,Tdap,and Td Vaccines (1 - Tdap) 12/25/1998 Hepatitis A Vaccines (1 of 2 - Risk 2-dose series) 12/25/1998 Hepatitis B Vaccines (1 of 3 - 19+ 3-dose series) 12/25/1998 Pneumococcal Vaccine: Pediat rics (0 to 5 Years) and At-Risk Patients (6 to 49 Years) (1 of 2 - PCV) 12/25/1998 Cholesterol Screening (Lipid Panel) 04/04/2023 HIV Screening 04/04/2023 Hepatitis C Screening 04/04/2023 Medicare Annual Wellness Visit 04/04/2023 Social Influencers of Health Screening 04/04/2023 Depression Screening 03/06/2024 Influenza Vaccine (#1) 2024 01/07/2014 RSV Immunization Adult Patie nts (1 - 1-dose 75+ series) 12/25/2054 COVID-19 Vaccine Completed 12/30/2023 HIB Vaccines Aged Out No longer eligi ble based on patient's age to complete this topic HPV Vaccines Aged Out No longer eligi ble based on patient's age to complete this topic IPV Vaccines Aged Out No longer eligi ble based on patient's age to complete this topic MMR Vaccines Aged Out No longer eligi ble based on patient's age to complete this topic Meningococcal ACWY Vaccine Aged Out N o longer eligible based on patient's age to complete this topic Meningococcal B Vaccine Aged Out No l onger eligible based on patient's age to complete this topic RSV Immunization Patients Un bozena 20 months Aged Out No longer eligible b ased on patient's age to complete this topic Varicella Vaccines Aged Out No longer eligible based on patient's age to complete this topic Procedures Procedure Name Priority Date/Time Associated Diagnosis Comments COMPLETE BLOOD COUNT STAT 11/20/2024 4:52 PM EDT ETHANOL STAT 11/20/2024 4:52 PM EDT BASIC METABOLIC PANEL STAT 11/20/2024 4:52 PM EDT ACETAMINOPHEN LEVEL STAT 11/20/2024 4 :52 PM EDT SALICYLATE LEVEL STAT 11/20/2024 4:52 PM EDT DRUG ABUSE SCREEN 8A PANEL, URINE STAT 11/20/2024 3:53 PM EDT PHENCYCLIDINE, URINE STAT 11/20/2024 3:53 PM EDT METHADONE SCREEN, URINE STAT 11/20/2024 3:53 PM EDT BUPRENORPHINE SCREEN, URINE STAT 11/20/2024 3:53 PM EDT METHADONE SCREEN, URINE STAT 11/19/2024 2:58 PM EDT PHENCYCLIDINE, URINE STAT 11/19/2024 2:58 PM EDT BUPRENORPHINE SCREEN, URINE STAT 11/19/2024 2:58 PM EDT DRUG ABUSE SCREEN 8A PANEL, URINE STAT 11/19/2024 2:58 PM EDT CBC WITH AUTO DIFFERENTIAL STAT 11/19/2024 2:52 PM EDT SALICYLATE LEVEL STAT 11/19/2024 2:52 PM EDT ACETAMINOPHEN LEVEL STAT 11/19/2024 2 :52 PM EDT ETHANOL STAT 11/19/2024 2:52 PM EDT COMPREHENSIVE METABOLIC PANEL STAT 11/19/2024 2:52 PM EDT CBC AND DIFFERENTIAL STAT 11/19/2024 2:52 PM EDT ECG ANNOTATED 11/18/2024 ECG 12-LEAD STAT 11/17/2024 5:09 PM EDT METHADONE SCREEN, URINE STAT 11/17/2024 3:25 PM EDT PHENCYCLIDINE, URINE STAT 11/17/2024 3:25 PM EDT BUPRENORPHINE SCREEN, URINE STAT 11/17/2024 3:25 PM EDT DRUG ABUSE SCREEN 8A PANEL, URINE STAT 11/17/2024 3:25 PM EDT CBC WITH AUTO DIFFERENTIAL STAT 11/17/2024 3:24 PM EDT SALICYLATE LEVEL STAT 11/17/2024 3:24 PM EDT ACETAMINOPHEN LEVEL STAT 11/17/2024 3 :24 PM EDT ETHANOL STAT 11/17/2024 3:24 PM EDT COMPREHENSIVE METABOLIC PANEL STAT 11/17/2024 3:24 PM EDT CBC AND DIFFERENTIAL STAT 11/17/2024 3:24 PM EDT CBC WITH AUTO DIFFERENTIAL STAT 11/12/2024 4:30 PM EDT SALICYLATE LEVEL STAT 11/12/2024 4:30 PM EDT ACETAMINOPHEN LEVEL STAT 11/12/2024 4 :30 PM EDT ETHANOL STAT 11/12/2024 4:30 PM EDT COMPREHENSIVE METABOLIC PANEL STAT 11/12/2024 4:30 PM EDT CBC AND DIFFERENTIAL STAT 11/12/2024 4:30 PM EDT METHADONE SCREEN, URINE STAT 11/12/2024 4:25 PM EDT PHENCYCLIDINE, URINE STAT 11/12/2024 4:25 PM EDT BUPRENORPHINE SCREEN, URINE STAT 11/12/2024 4:25 PM EDT DRUG ABUSE SCREEN 8A PANEL, URINE STAT 11/12/2024 4:25 PM EDT CBC WITH AUTO DIFFERENTIAL STAT 09/29/2024 5:51 PM EDT COMPREHENSIVE METABOLIC PANEL STAT 09/29/2024 5:51 PM EDT METHADONE SCREEN, URINE STAT 09/29/2024 5:51 PM EDT PHENCYCLIDINE, URINE STAT 09/29/2024 5:51 PM EDT BUPRENORPHINE SCREEN, URINE STAT 09/29/2024 5:51 PM EDT DRUG ABUSE SCREEN 8A PANEL, URINE STAT 09/29/2024 5:51 PM EDT SALICYLATE LEVEL STAT 09/29/2024 5:51 PM EDT ACETAMINOPHEN LEVEL STAT 09/29/2024 5 :51 PM EDT ETHANOL STAT 09/29/2024 5:51 PM EDT CBC AND DIFFERENTIAL STAT 09/29/2024 5:51 PM EDT METHADONE SCREEN, URINE STAT 09/28/2024 8:23 PM EDT PHENCYCLIDINE, URINE STAT 09/28/2024 8:23 PM EDT BUPRENORPHINE SCREEN, URINE STAT 09/28/2024 8:23 PM EDT DRUG ABUSE SCREEN 8A PANEL, URINE STAT 09/28/2024 8:23 PM EDT CBC WITH AUTO DIFFERENTIAL STAT 09/28/2024 8:19 PM EDT SALICYLATE LEVEL STAT 09/28/2024 8:19 PM EDT ACETAMINOPHEN LEVEL STAT 09/28/2024 8 :19 PM EDT ETHANOL STAT 09/28/2024 8:19 PM EDT COMPREHENSIVE METABOLIC PANEL STAT 09/28/2024 8:19 PM EDT CBC AND DIFFERENTIAL STAT 09/28/2024 8:19 PM EDT CBC WITH AUTO DIFFERENTIAL STAT 09/27/2024 2:39 PM EDT METHADONE SCREEN, URINE STAT 09/27/2024 2:39 PM EDT PHENCYCLIDINE, URINE STAT 09/27/2024 2:39 PM EDT BUPRENORPHINE SCREEN, URINE STAT 09/27/2024 2:39 PM EDT DRUG ABUSE SCREEN 8A PANEL, URINE STAT 09/27/2024 2:39 PM EDT SALICYLATE LEVEL STAT 09/27/2024 2:39 PM EDT ACETAMINOPHEN LEVEL STAT 09/27/2024 2 :39 PM EDT ETHANOL STAT 09/27/2024 2:39 PM EDT COMPREHENSIVE METABOLIC PANEL STAT 09/27/2024 2:39 PM EDT CBC AND DIFFERENTIAL STAT 09/27/2024 2:39 PM EDT CBC WITH AUTO DIFFERENTIAL STAT 08/27/2024 8:38 PM EDT SALICYLATE LEVEL STAT 08/27/2024 8:38 PM EDT ACETAMINOPHEN LEVEL STAT 08/27/2024 8 :38 PM EDT ETHANOL STAT 08/27/2024 8:38 PM EDT COMPREHENSIVE METABOLIC PANEL STAT 08/27/2024 8:38 PM EDT CBC AND DIFFERENTIAL STAT 08/27/2024 8:38 PM EDT METHADONE SCREEN, URINE STAT 08/27/2024 8:34 PM EDT PHENCYCLIDINE, URINE STAT 08/27/2024 8:34 PM EDT BUPRENORPHINE SCREEN, URINE STAT 08/27/2024 8:34 PM EDT DRUG ABUSE SCREEN 8A PANEL, URINE STAT 08/27/2024 8:34 PM EDT METHADONE SCREEN, URINE STAT 08/25/2024 2:36 AM EDT PHENCYCLIDINE, URINE STAT 08/25/2024 2:36 AM EDT BUPRENORPHINE SCREEN, URINE STAT 08/25/2024 2:36 AM EDT DRUG ABUSE SCREEN 8A PANEL, URINE STAT 08/25/2024 2:36 AM EDT RESPIRATORY VIRUS PANEL MOLECULAR STUDY STAT 08/25/2024 2:34 AM EDT CBC WITH AUTO DIFFERENTIAL STAT 08/25/2024 2:32 AM EDT SALICYLATE LEVEL STAT 08/25/2024 2:32 AM EDT ACETAMINOPHEN LEVEL STAT 08/25/2024 2 :32 AM EDT ETHANOL STAT 08/25/2024 2:32 AM EDT COMPREHENSIVE METABOLIC PANEL STAT 08/25/2024 2:32 AM EDT CBC AND DIFFERENTIAL STAT 08/25/2024 2:32 AM EDT from Last 3 Months Results * (ABNORMAL) Complete blood count (11/20/2024 4:52 PM EDT) WBC 8.6 4.8 - 10.8 K/[facility] LAB HEMETOLOGY METHOD 11/20/2024 5:15 PM EDT [facility] RBC 4.60 4.50 - 5.50 M/mcL LAB HEMETOLOGY METHOD 11/20/2024 5:15 PM EDT [facility] Hemoglobin 13.7 13.5 - 17.5 g/dL LAB HEMETOLOGY METHOD 11/20/2024 5:15 PM EDT [facility] Hematocrit 41.6(L) 42.0 - 54.0 % LAB HEMETOLOGY METHOD 11/20/2024 5:15 PM EDT [facility] MCV 89.7 79.0 - 98.0 FL LAB HEMETOLOGY METHOD 11/20/2024 5:15 PM EDT [facility] MCH 29.5 27.0 - 32.0 pcg LAB HEMETOLOGY METHOD 11/20/2024 5:15 PM EDT [facility] MCHC 32.9 32.0 - 37.0 g/dL LAB HEMETOLOGY METHOD 11/20/2024 5:15 PM EDT [facility] RDW 12.9 11.0 - 15.0 % LAB HEMETOLOGY METHOD 11/20/2024 5:15 PM EDT [facility] Platelets 300 130 - 400 K/mcL LAB HEMETOLOGY METHOD 11/20/2024 5:15 PM EDT [facility] MPV 8.5 7.0 - 11.0 FL LAB HEMETOLOGY METHOD 11/20/2024 5:15 PM EDT [facility] NRBC 0.0 <1.0 % LAB HEMETOLOGY METHOD 11/20/2024 5:15 PM EDT [facility] NRBC Absolute 0.00 <0.10 K/mcL LAB HEMETOLOGY METHOD 11/20/2024 5:15 PM EDT [facility] Blood Venous blood specimen / Unknown Venipuncture / Unknown 11/20/2024 4:52 PM EDT 11/20/2024 5:11 PM EDT us Iliana Swenson MD LAB BLOOD ORDERABLES Final Resul t [facility] [address] [place] [address], [place] [phone] * Ethanol (11/20/2024 4:52 PM EDT) Only the most recent of9 resultswithin the time period is included. Ethanol Level 3 0 - 10 mg/dL LAB CHEMISTRY METHOD 11/20/2024 5:38 PM EDT [facility] Blood Venous blood specimen / Unknown Venipuncture / Unknown 11/20/2024 4:52 PM EDT 11/20/2024 5:11 PM EDT us Iliana Swenson MD LAB BLOOD ORDERABLES Final Resul t Performing Organization Address [facility] Co de Phone Number [facility] [address] [place] [address], * (ABNORMAL) Acetaminophen level (11/20/2024 4:52 PM EDT) Only the most recent of9 resultswithin the time period is included. Acetaminophen Level <2.0(L) 10.0 - 30.0 mcg/mL LAB CHEMISTRY METHOD 11/20/2024 5:41 PM EDT [facility] Blood Venous blood specimen / Unknown Venipuncture / Unknown 11/20/2024 4:52 PM EDT 11/20/2024 5:11 PM EDT us Iliana Swenson MD LAB BLOOD ORDERABLES Final Resul t Performing Organization Address City/[facility]/ZIP Co de Phone Number [facility] [address] [place] [address], [place] [phone] * (ABNORMAL) Salicylate level (11/20/2024 4:52 PM EDT) Only the most recent of9 resultswithin the time period is included. Salicylate Level <1.7(L) 2.0 - 29.0 mg/dL LAB CHEMISTRY METHOD 11/20/2024 5:38 PM T [facility] Blood Venous blood specimen / Unknown Venipuncture / Unknown 11/20/2024 4:52 PM EDT 11/20/2024 5:11 PM EDT us Iliana Swenson MD LAB BLOOD ORDERABLES Final Resul t [facility] [address] [place] [address], [place] [phone] * Basic metabolic panel (11/20/2024 4:52 PM EDT) Sodium 136 133 - 145 mmol/L LAB CHEMISTRY METHOD 11/20/2024 5:38 PM [facility] Potassium 4.9 3.5 - 5.5 mmol/L LAB CHEMISTRY METHOD 11/20/2024 5:38 PM [facility] Chloride 101 96 - 110 mmol/L LAB CHEMISTRY METHOD 11/20/2024 5:38 PM [facility] CO2 32 21 - 32 mmol/L LAB CHEMISTRY METHOD 11/20/2024 5:38 PM [facility] Anion Gap 3 3 - 11 LAB CHEMISTRY METHOD 11/20/2024 5:38 PM [facility] Glucose 92 70 - 100 mg/dL LAB CHEMISTRY METHOD 11/20/2024 5:38 PM [facility] BUN 14 5 - 25 mg/dL LAB CHEMISTRY METHOD 11/20/2024 5:38 PM [facility] Creatinine 0.92 0.70 - 1.30 mg/dL LAB CHEMISTRY METHOD 11/20/2024 5:38 PM [facility] eGFR 105 >=60 mL/min/1. 73m2 LAB CHEMISTRY METHOD 11/20/2024 5:38 PM [facility] Comment:Calculation based on the Chronic Kidney Disease Epidemiology Collaboration (CKD-EPI) equation refit without adjustment for race. BUN/Creatinine Ratio 15.2 LAB CHEMISTRY METHOD 11/20/2024 5:38 PM EDT [facility] Calcium 9.2 8.5 - 10.5 mg/dL LAB CHEMISTRY METHOD 11/20/2024 5:38 PM EDT [facility] Blood Venous blood specimen / Unknown Venipuncture / Unknown 11/20/2024 4:52 PM EDT 11/20/2024 5:11 PM EDT us Iliana Swenson MD LAB BLOOD ORDERABLES Final Resul t [facility] [address] [place] [address], [place] [phone] * (ABNORMAL) Drug abuse screen 8a panel, urine (11/20/2024 3:53 PM EDT) Only the most recent of9 resultswithin the time period is included. Amphetamine Screen, Ur Negative Negative LAB CHEMISTRY METHOD 5 5:15 PM EDT [facility] Comment:Certain OTC medicati ons containing ephedrine, phenylephrine, pseudoephedrine and phenylpropanolamine can cause false positive results. Barbiturate Screen, Ur Negative Negative LAB CHEMISTRY METHOD 5 5:15 PM EDT [facility] Benzodiazepine Screen, Ur Negative Negative LAB CHEMISTRY METHOD 5 5:15 PM EDT [facility] Cocaine Screen, Ur Negative Negative LAB CHEMISTRY METHOD 5 5:15 PM EDT [facility] Opiate Screen, Ur Negative Negative LAB CHEMISTRY METHOD 5 5:15 PM EDT [facility] Cannabinoid (THC) Screen, Ur Positive(A ) Negative LAB CHEMISTRY METHOD 5 5:15 PM EDT [facility] Comment:Specimens from patie nts taking pantoprazole sodium (Protonix) have been shown to produce false positive results. Oxycodone Screen, Ur Negative Negative LAB CHEMISTRY METHOD 5:15 PM EDT [facility] Fentanyl, Ur Negative Negative LAB CHEMISTRY METHOD 5:15 PM EDT [facility] Urine Urine specimen obtained by clean catch procedure / Unknown Non-blood Collection / Unknown 11/20/2024 3:53 PM EDT 11/20/2024 4:44 PM EDT [facility] - 11/20/2024 5:15 PM EDT Assay [...] MD LAB URINE ORDERABLES Final Resul t [facility] [address] [place] [address], * (ABNORMAL) Buprenorphine screen, urine (11/20/2024 3:53 PM EDT) Only the most recent of9 resultswithin the time period is included. Buprenorphine Screen Urine Positive (A) Negative LAB CHEMISTRY METHOD 11/20/2024 5:15 PM EDT [facility] Urine Urine specimen obtained by clean catch procedure / Unknown Non-blood Collection / Unknown 11/20/2024 3:53 PM EDT 11/20/2024 4:44 PM EDT [facility] - 11/20/2024 5:15 PM EDT Assay cutoff 5 ng/mL Semi-quantitative assay for screening purposes only. Unconfirmed screening result should not be used for non-medical purposes. *ALTERNATE METHOD CONFIRMATION DONE UPON REQUEST ONLY* us Iliana Swenson MD LAB URINE ORDERABLES Final Resul t Performing Organization Address [facility] Co de Phone Number [facility] [address] [place] [address], [place] [phone] * Methadone, urine (11/20/2024 3:53 PM EDT) Only the most recent of9 resultswithin the time period is included. Methadone Screen, Urine Negative Negative LAB CHEMISTRY METHOD 11/20/2024 5:15 PM EDT [facility] Comment: Assay cutoff 300 ng/mL [...] ORDERABLES Final Resul t Performing Organization Address [facility] Co de Phone Number [facility] [address] [place] [address], [place] [phone] * Phencyclidine, urine (11/20/2024 3:53 PM EDT) Only the most recent of9 resultswithin the time period is included. PCP Scrn, Ur Negative Negative LAB CHEMISTRY METHOD 11/20/2024 5:15 PM EDT [facility] Comment: Assay cutoff 25 ng/mL Semi-quantitative assay for screening purposes only. Unconfirmed screening result should not be used for non-medical purposes. *ALTERNATE METHOD CONFIRMATION DONE UPON REQUEST ONLY* Urine Urine specimen obtained by clean catch procedure / Unknown Non-blood Collection / Unknown 11/20/2024 3:53 PM EDT 11/20/2024 4:44 PM EDT us Iliana Swenson MD LAB URINE ORDERABLES Final Resul t [facility] [address] [place] [address], * (ABNORMAL) CBC auto differential (11/19/2024 2:52 PM EDT) Only the most recent of8 resultswithin the time period is included. WBC 8.0 4.8 - 10.8 K/mcL LAB HEMETOLOGY METHOD 11/19/2024 3:42 PM EDT [facility] RBC 4.60 4.50 - 5.50 M/mcL LAB HEMETOLOGY METHOD 11/19/2024 3:42 PM EDT [facility] Hemoglobin 13.4(L) 13.5 - 17.5 g/dL LAB HEMETOLOGY METHOD 11/19/2024 3:42 PM EDT [facility] Hematocrit 40.7(L) 42.0 - 54.0 % LAB HEMETOLOGY METHOD 11/19/2024 3:42 PM EDT [facility] MCV 88.7 79.0 - 98.0 FL LAB HEMETOLOGY METHOD 11/19/2024 3:42 PM EDT [facility] MCH 29.2 27.0 - 32.0 pcg LAB HEMETOLOGY METHOD 11/19/2024 3:42 PM EDT [facility] MCHC 32.9 32.0 - 37.0 g/dL LAB HEMETOLOGY METHOD 11/19/2024 3:42 PM EDT [facility] RDW 13.2 11.0 - 15.0 % LAB HEMETOLOGY METHOD 11/19/2024 3:42 PM EDT [facility] Platelets 331 130 - 400 K/mcL LAB HEMETOLOGY METHOD 11/19/2024 3:42 PM EDT [facility] MPV 8.9 7.0 - 11.0 FL LAB HEMETOLOGY METHOD 11/19/2024 3:42 PM [facility] NRBC 0.0 <1.0 % LAB HEMETOLOGY METHOD 11/19/2024 3:42 PM [facility] NRBC Absolute 0.00 <0.10 K/mcL LAB HEMETOLOGY METHOD 11/19/2024 3:42 PM [facility] Neutrophils Relative 53.4 % LAB HEMETOLOGY METHOD 11/19/2024 3:42 PM [facility] Lymphocytes Relative 36.7 % LAB HEMETOLOGY METHOD 11/19/2024 3:42 PM [facility] Monocytes Relative 6.2 % LAB HEMETOLOGY METHOD 11/19/2024 3:42 PM [facility] Eosinophils Relative 2.5 % LAB HEMETOLOGY METHOD 11/19/2024 3:42 PM [facility] Basophils Relative 1.0 % LAB HEMETOLOGY METHOD 11/19/2024 3:42 PM [facility] Immature Granulocytes Relative 0.2 % LAB HEMETOLOGY METHOD 11/19/2024 3:42 PM [facility] Neutrophils Absolute 4.29 1.50 - 7.00 K/mcL LAB HEMETOLOGY METHOD 11/19/2024 3:42 PM [facility] Lymphocytes Absolute 2.95 1.00 - 5.00 K/mcL LAB HEMETOLOGY METHOD 11/19/2024 3:42 PM [facility] Monocytes Absolute 0.50 0.20 - 1.00 K/mcL LAB HEMETOLOGY METHOD 11/19/2024 3:42 PM [facility] Eosinophils Absolute 0.20 0.00 - 0.50 K/mcL LAB HEMETOLOGY METHOD 11/19/2024 3:42 PM [facility] Basophils Absolute 0.08 0.00 - 0.20 K/mcL LAB HEMETOLOGY METHOD 11/19/2024 3:42 PM EDT [facility] Immature Granulocytes Absolute 0.02 0.00 - 0.03 K/mcL LAB HEMETOLOGY METHOD 11/19/2024 3:42 PM EDT [facility] Blood Venous blood specimen / Unknown Venipuncture / Unknown 11/19/2024 2:52 PM EDT 11/19/2024 3:29 PM EDT us [facility] LAB BLOOD ORDERABLES Fin al Result [facility] [address] [place] [address], * Comprehensive metabolic panel (11/19/2024 2:52 PM EDT) Only the most recent of8 resultswithin the time period is included. Sodium 137 133 - 145 mmol/L LAB CHEMISTRY METHOD 11/19/2024 4:18 PM [facility] Potassium 4.4 3.5 - 5.5 mmol/L LAB CHEMISTRY METHOD 11/19/2024 4:18 PM [facility] Chloride 103 96 - 110 mmol/L LAB CHEMISTRY METHOD 11/19/2024 4:18 PM [facility] CO2 31 21 - 32 mmol/L LAB CHEMISTRY METHOD 11/19/2024 4:18 PM [facility] Anion Gap 3 3 - 11 LAB CHEMISTRY METHOD 11/19/2024 4:18 PM [facility] Glucose 92 70 - 100 mg/dL LAB CHEMISTRY METHOD 11/19/2024 4:18 PM [facility] BUN 14 5 - 25 mg/dL LAB CHEMISTRY METHOD 11/19/2024 4:18 PM [facility] Creatinine 0.87 0.70 - 1.30 mg/dL LAB CHEMISTRY METHOD 11/19/2024 4:18 PM EDT [facility] eGFR 109 >=60 mL/min/1. 73m2 LAB CHEMISTRY METHOD 11/19/2024 4:18 PM [facility] Comment:Calculation based on the Chronic Kidney Disease Epidemiology Collaboration (CKD-EPI) equation refit without adjustment for race. BUN/Creatinine Ratio 16.1 LAB CHEMISTRY METHOD 11/19/2024 4:18 PM T [facility] Calcium 9.8 8.5 - 10.5 mg/dL LAB CHEMISTRY METHOD 11/19/2024 4:18 PM [facility] AST (SGOT) 24 10 - 42 unit/L LAB CHEMISTRY METHOD 11/19/2024 4:18 PM [facility] ALT (SGPT) 22 10 - 60 unit/L LAB CHEMISTRY METHOD 11/19/2024 4:18 PM [facility] Alkaline Phosphatase 111 42 - 121 unit/L LAB CHEMISTRY METHOD 11/19/2024 4:18 PM [facility] Total Protein 7.0 6.0 - 8.0 g/dL LAB CHEMISTRY METHOD 11/19/2024 4:18 PM [facility] Albumin 4.2 3.2 - 5.0 g/dL LAB CHEMISTRY METHOD 11/19/2024 4:18 PM [facility] Total Bilirubin 0.4 0.0 - 1.4 mg/dL LAB CHEMISTRY METHOD 11/19/2024 4:18 PM [facility] Blood Venous blood specimen / Unknown Venipuncture / Unknown 11/19/2024 2:52 PM EDT 11/19/2024 3:29 PM EDT us Seble SALAZAR LAB BLOOD ORDERABLES Fin al Result [facility] [address] [place] [address], * ECG-Annotated (11/18/2024) Provider Onbase MD ECG ORDERABLES Final Result * ECG 12 lead (11/17/2024 5:09 PM EDT) Pathologist [facility] Ventricular Rate ECG 55 BPM GEMUSE Atrial Rate 55 BPM GEMUSE P-R Interval 164 ms GEMUSE QRS Duration 84 ms GEMUSE Q-T Interval 390 ms GEMUSE QTc 373 ms GEMUSE P Wave Slaughters 20 degrees GEMUSE R Slaughters 22 degrees GEMUSE T Slaughters 1 degrees GEMUSE ECG Interpretation Sinus bradycardia Nonspecific T wave abnormality When compared with ECG of 01-JUL-2024 13:02, Vent. rate has decreased BY 27 BPM Confirmed by Ara HIDALGO, COCO ([id number]) on 11/17/2024 6:46:10 PM GEMUSE 11/17/2024 5:09 PM EDT 11/17/2024 6:46 PM EDT Robert Rebolledo MD ECG ORDERABLES Mindy l Result GEMUSE * (ABNORMAL) Respiratory virus panel molecular study (08/25/2024 2:34 AM EDT) [facility] Adenovirus Detection by PCR Not Detected Not Detected LAB MICROBIOLOGY METHOD 08/25/2024 3:33 AM EDT [facility] Influenza A PCR Not Detected Not Detected LAB MICROBIOLOGY METHOD 08/25/2024 3:33 AM EDT [facility] Influenza B PCR Not Detected Not Detected LAB MICROBIOLOGY METHOD 08/25/2024 3:33 AM EDT [facility] Coronavirus 229E Not Detected Not Detected LAB MICROBIOLOGY METHOD 08/25/2024 3:33 AM EDT [facility] Coronavirus HKU1 Not Detected Not Detected LAB MICROBIOLOGY METHOD 08/25/2024 3:33 AM EDT [facility] Coronavirus OC43 Not Detected Not Detected LAB MICROBIOLOGY METHOD 08/25/2024 3:33 AM EDT [facility] Coronavirus NL63 Not Detected Not Detected LAB MICROBIOLOGY METHOD 08/25/2024 3:33 AM EDT [facility] Parainfluenza Virus 1 Not Detected Not Detected LAB MICROBIOLOGY METHOD 08/25/2024 3:33 AM EDT [facility] Parainfluenza Virus 2 Not Detected Not Detected LAB MICROBIOLOGY METHOD 08/25/2024 3:33 AM EDT [facility] Parainfluenza Virus 3 Not Detected Not Detected LAB MICROBIOLOGY METHOD 08/25/2024 3:33 AM EDT [facility] Parainfluenza Virus 4 Not Detected Not Detected LAB MICROBIOLOGY METHOD 08/25/2024 3:33 AM EDT [facility] RSV PCR Not Detected Not Detected LAB MICROBIOLOGY METHOD 08/25/2024 3:33 AM EDT [facility] Human Metapneumovirus A and B Not Detected Not Detected LAB MICROBIOLOGY METHOD 08/25/2024 3:33 AM EDT [facility] Rhinovirus/Entero virus Detected(A ) Not Detected LAB MICROBIOLOGY METHOD 08/25/2024 3:33 AM EDT [facility] Bordetella pertussis Not Detected Not Detected LAB MICROBIOLOGY METHOD 08/25/2024 3:33 AM EDT [facility] Bordetella parapertussis Not Detected Not Detected LAB MICROBIOLOGY METHOD 08/25/2024 3:33 AM EDT [facility] Mycoplasma pneumo by PCR Not Detected Not Detected LAB MICROBIOLOGY METHOD 08/25/2024 3:33 AM EDT [facility] Chlamydia pneumoniae Not Detected Not Detected LAB MICROBIOLOGY METHOD 08/25/2024 3:33 AM EDT [facility] SARS COV-2 Not Detected Not Detected LAB MICROBIOLOGY METHOD 08/25/2024 3:33 AM EDT [facility] Swab Both anterior nares / Unknown Non-blood Collection / Unknown 08/25/2024 2:34 AM EDT 08/25/2024 2:39 AM EDT Narrative [facility] - 08/25/2024 3:33 AM EDT Testing was performed using the TaKaDue Respiratory Pathogen PCR Assay. All results must be correlated with the clinical findings. Results should not be used as the sole basis for diagnosis. False Negative results may occur from the presence of sequence variants in the region targeted by the assay or the presence of inhibitors. Results may be affected by concurrent antiviral/antimicrobial therapy or levels of organisms that are below the limit of detection. 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
--- OUTSIDE RECORDS SUMMARY | 2024-11-21 16:11 | XMS_ITS | Clinical Summary ---
Author Organization [facility] Address [address] [place] [address] Care Team Providers Care Hat Presser Name Role Phone Unavailable Primary Care Provider Unavailabl e Source Comments PLEASE NOTE, if this patient is a minor, it may be UNLAWFUL to discuss sensitive information that is contained in these records (such as FAMILY PLANNING, MENTAL HEALTH or SUBSTANCE ABUSE) with the minor patient's parent or other person without the patient's specific authorization.DANIELA Immunizations Immunization Administration Dates Next Due Pfizer COVID-19 (Comirnaty), Mrna, Lnp-s, Pf, Norman-sucrose, 30 Mcg/0.3 Ml, 12yr+ 12/30/2023 Social History Tobacco Use Types Packs/Day Years Used Date Smoking Tobacco: Never Assessed Sex and Gender Information Value Date Recorded Sex Assigned at Not on file Legal Sex Male 7:23 AM PDT Gender Identity Not on file Sexual Orientation Not on file Plan of Treatment Health Maintenance Due Date Last Done Comments Anxiety Screening 1979 Diabetes Screening 1979 Hepatitis C Screening 1979 LTBI Screening (#1) 1979 Lipid Screening 1979 Tobacco Screening 1979 HIV Screening 12/25/1994 Hypertension Screening (#1) 12/25/1997 Medicare Annual Wellness Visit 12/25/1997 Imm-DTaP/Tdap/Td (1 - Tdap) 12/25/1998 Imm-Hepatitis A (1 of 2 - Risk 2-dose series) 12/25/18 99 Imm-Hepatitis B (1 of 3 - 19+ 3-dose series) 9 Imm-HPV (1 - 3-dose SCDM series) 12/25/2006 Alcohol and Drug Screen 03/06/2024 Depression Annual Screen 03/06/2024 Imm-Influenza (#1) 2024 [id number] Completed 12/30/2023 [place]
[2024-11-21 16:23] VITALS: BMI 30.5
--- NOTE | 2024-11-21 18:28 | PC.ADMIT ---
Reddy was biba from [facility] at 1429. He is alert, oriented x4 and appears stated age. He was cooperative with skin/safety check with 2 staff. His skin check is unremarkable. He signed a CV with Tyrell Wray NP. He reports things were starting to get to me, lots of things. I have no one. I was caring for my mother before she had surgery, my sister took over and now she is living with my sister now and I have lost everything. He has diagnoses of schizophrenia, polysubstance use disorder. Per crisis eval he self presented to the ED with auditory hallucinations and suicidal ideations. , He recently moved to a new apartment and is feeling very alone . His cousin was killed one year ago, and he has been thinking they are coming after me . However during intake with , he denied any feelings of paranoia or AVH, urges to harm self or others. He does appear internally preoccupied however. He denies any health concerns. He doesnt have a PCP or therapist. He is only taking suboxone three times a day which he gets from [facility]. This was verified with [facility]. He was in the [facility] ED for SI two days ago but discharged. His last IPLOC was May 2024 at [place], at that time he had been on rispiradone and zoloft. He is a daily cigarette smoker but refused NRT or quitworks. He also refused flu vaccine at this time. He was oriented to room and routine, he obtained headphones and went to sleep.
[2024-11-21 20:00] VITALS: BP 101/55; PULSE 76; RESP 16; TEMP 36.5; O2SAT 98
[2024-11-22 08:00] VITALS: BP 118/71; PULSE 60; RESP 18; TEMP 36.6; O2SAT 98
[2024-11-22 09:05] LABS: Hemoglobin A1C 144.0026 umol/L; Total Hemoglobin (HGBA1C) 3691.8142 umol/L
[2024-11-22 09:19] LABS: Alanine Aminotransferase 15 U/L (0-40); Albumin Level 4.7 g/dL (3.5-5.0); Alkaline Phosphatase 105 U/L (39-117); Anion Gap 9 (12-20); Aspartate Amino Transferase 22 U/L (5-37); Blood Urea Nitrogen 14 mg/dL (9-16); Calcium 9.8 mg/dL (8.4-10.2); Carbon Dioxide 35 mmol/L (22-29); Chloride 100 mmol/L (96-108); Cholesterol 208 mg/dL (<200); Creatinine Clr Calc Pharmacy 116.0; Estimated Glomerular Filt Rate > 60; HDL Cholesterol 45 mg/dL (>40); Potassium 4.5 mmol/L (3.3-5.1); Sodium 139 mmol/L (135-145); Total Protein 7.4 g/dL (6.5-8.0); Triglycerides 139 mg/dL (<150)
[2024-11-22 09:47] LABS: Folate 9.2 ng/mL (> or = 4.0); Vitamin B12 354 pg/mL (200-900)
[2024-11-22 09:52] LABS: Thyroid Stimulating Hormone 2.17 uIU/mL (0.32-4.0)
--- NOTE | 2024-11-22 11:38 | HO.PSYADMNOT ---
[facility] Date of Service: 11/22/24 Chief Complaint: major depression recurrent, severe with psychosis Sources of Information: patient interviewed, chart reviewed and crisis/core team assessment reviewed HPI Narrative: Patient is a 43-year-old male with history of schizophrenia and opiate use disorder who presented ER due to suicidal ideation secondary to increased auditory hallucinations. Per crisis report, patient reports suicidal ideation and auditory hallucinations when arriving to ER. Patient came to ER 2 days ago to be evaluated for suicidal ideation but felt better and was discharged. Since arriving home, he continued to have suicidal ideation and felt unsafe and presented to ER to be re-evaluated. Patient stated, I keep stressing. I can not do this. I am not safe out there. I can not be alone . Patient reports one of his cousins was murdered and he feels they are after him and plans on getting a gun and kill them . He reports his cousin was murdered a year ago. Patient stated, I can't promise I will not hurt anyone , and was holding his head, stating, the voices were driving him crazy telling him to do various things. He does not have outpatient psychiatric providers at this time. History of multiple inpatient psychiatric hospitalizations. Patient reports he did not follow up with outpatient providers due to wanting to figure it out on his own . During admission, patient was alert and oriented x3. Calm and cooperative. Patient reports feeling depressed; patient stated, I went to the ER because having of the voices and feeling suicidal. The voices were telling me to go to the hospital and not be home. I was in a skilled nursing for 13 months and I finally got an apartment. I was able to relax. I think the stress got to me when I was able to relax . Patient reports feeling suicidal due to the stress of everything . He currently denies SI/HI/VH/AH. Patient reports concerns regarding being harmed by the person who killed his cousin . Patient stated, I don't know who killed my cousin so I'm worried they would come after me . Patient reports he has a history of taking medications for his depression and auditory hallucinations but could not recall name of medications. After reviewing medication history, hx showed, Risperdal 1 mg p.o. daily and Sertraline 50 mg p.o. daily. Pt would like referral to outpatient prescribers when discharged. Past Psychiatric History: hx of multiple inpatient psychiatric admissions. does not have outpatient providers. denies hx of SA/SIB. Medical Evaluation Reviewed: Yes PMF Family History: denies Social History: Lives alone. Single. 7 kids who live with their mothers. Disability. highest level of education completed 7th grade; did not obtain GED. Substance History: patient reports smoking marijuana. hx of opioid use. utox positive for marijuana. Trauma History: denies Diagnostics Vital Signs (24Hr): Vital Signs - 24 hr 11/21/24 15:00 11/21/24 20:00 11/22/24 08:00 Temperature 97.6 F 97.7 F 97.8 F Pulse Rate 72 76 60 Respiratory Rate 16 16 18 Blood Pressure 110/76 101/55 L 118/71 Pulse Oximetry 100 98 98 Oxygen Delivery Method Room Air Room Air BMI result Body Mass Index 30.5 Labs 11/22/24 08:50 Labs: Laboratory Results - last 48 hr 11/22/24 08:50 Sodium 139 Potassium 4.5 Chloride 100 Carbon Dioxide 35 H Anion Gap 9 L BUN 14 Creatinine 0.89 Estim Creat Clear Calc 116.0 Estimated GFR > 60 Random Glucose 105 Estimat Average Glucose 117 Hemoglobin A1c % 5.7 Calcium 9.8 Total Bilirubin 0.3 AST 22 ALT 15 Alkaline Phosphatase 105 Total Protein 7.4 Albumin 4.7 Triglycerides 139 Cholesterol 208 H LDL Cholesterol, Calc 136 H HDL Cholesterol 45 Vitamin B12 354 Folate 9.2 TSH 2.17 Meds/Allergies Meds Home Medications ?Medication ?Instructions ?Recorded ?Confirmed ?Type buprenorphine 8 mg-naloxone 2 mg 1 film sublingual TID 11/21/24 11/21/24 History sublingual film Allergies Allergies Allergy/AdvReac Type Severity Reaction Status Date / Time No Known Allergies Allergy Verified 11/21/24 16:24 Mental Status Exam Mental Status Exam Patient Appearance: Appropriate Patient Orientation: Person, Place, Time and Situation Level of Consciousness: Awake and Alert Patient Behavior: Appropriate, Cooperative and Good Eye Contact Mood Description: Depressed and Anxious Affect Description: Depressed and Anxious Ability to Follow Directions: Good Speech Pattern: Clear Memory Description: Intact Hallucinations: Auditory Delusions: Paranoid Ideation Thought Process: Intact and Goal Oriented Thought Content: positive for Intact Assessment & Plan Assessment & Plan (1) Schizophrenia: Status: Acute Code(s): F20.9 - Schizophrenia, unspecified (2) Opioid use disorder in remission: Status: Acute Code(s): F11.91 - Opioid use, unspecified, in remission Plan Patient is a 43-year-old male with history of schizophrenia and opiate use disorder who presented ER due to suicidal ideation secondary to increased auditory hallucinations. Plan: 15 minute safety checks Start: Risperidal 1mg PO BID Obtain collateral encourage groups referral to outpatient psychiatric providers discharge planning Patient educated on: diagnosis and medication risk/benefits Reason for continued inpatient stay Substantial Risk for: harm to self, harm to others and med/psych decompensation Statement Statement: I have reviewed the history and physical and performed a pertinent examination on my patient. No changes have occurred unless specified. If the History and Physical was not performed prior to admission, the Hospitalist's service will be consulted for completing the admission physical. Time Spent With Patient Time: Total time managing care of this patient today _60___ minutes.
[2024-11-22 20:00] VITALS: BP 121/83; PULSE 68; RESP 18; TEMP 36.9; O2SAT 98
[2024-11-23 08:00] VITALS: BP 110/66; PULSE 61; TEMP 36.6; O2SAT 99
--- NOTE | 2024-11-23 09:00 | HO.PSYCHPN ---
Subjective Subjective Date of Service: 11/23/24 Reason For Visit: major depression recurrent, severe with psychosis Interim History: met with patient; discussed with team; reviewed chart Patient lying in bed, remains isolative. Last night refused Risperdal but took it today. Patient says that he is good and that mood is better and auditory hallucinations are 100% gone. He denies any SI and says sleeping well. Wants Risperdal to remain b.i.d. Mental Status Exam Mental Status Exam Narrative: Pt is alert and oriented; behavior is isolative, keeping to himself; a little difficult with which to engage but overall cooperative on approach; patient is not in distress; dressed in hospital attire, unkempt; mood is described as good and affect congruent, brighter; eye contact appropriate; Speech is normal rate, volume and prosody and not pressured; seems to be some psychomotor retardation present; thought process is organized and goal directed; Thought content is not much disclosed but otherwise on tx; no expressed delusional ideations; denies any SI/HI. Denies AVH. Patients insight and judgment improved Diagnostics Vital Signs (24Hr): Vital Signs - 24 hr 11/22/24 20:00 Temperature 98.4 F Pulse Rate 68 Respiratory Rate 18 Blood Pressure 121/83 Pulse Oximetry 98 Oxygen Delivery Method Room Air BMI result Body Mass Index 30.5 Labs 11/22/24 08:50 Labs: Laboratory Results - last 48 hr 11/22/24 08:50 Sodium 139 Potassium 4.5 Chloride 100 Carbon Dioxide 35 H Anion Gap 9 L BUN 14 Creatinine 0.89 Estim Creat Clear Calc 116.0 Estimated GFR > 60 Random Glucose 105 Estimat Average Glucose 117 Hemoglobin A1c % 5.7 Calcium 9.8 Total Bilirubin 0.3 AST 22 ALT 15 Alkaline Phosphatase 105 Total Protein 7.4 Albumin 4.7 Triglycerides 139 Cholesterol 208 H LDL Cholesterol, Calc 136 H HDL Cholesterol 45 Vitamin B12 354 Folate 9.2 TSH 2.17 Medications Medications Current Medications Acetaminophen (Acetaminophen 325 Mg Tablet) 650 mg PO Q6H PRN PRN Reason: Headache/Pain, Scale 1-10 Al Hydroxide/Mg Hydroxide (Magnesium Hydrox/Alum Hydrox 30 Ml Oral.Susp) 30 ml PO Q6H PRN PRN Reason: Heartburn/Nausea Buprenorphine/Naloxone (Buprenorphine/Naloxone 8/2 Mg Film) 1 film SUBLINGUAL TID JEAN CLAUDE Last Admin: 11/23/24 08:40 Dose: 1 film Hydroxyzine HCl (Hydroxyzine Hcl 25 Mg Tablet) 25 mg PO Q6H PRN PRN Reason: mild anxiety Last Admin: 11/22/24 13:22 Dose: 25 mg Magnesium Hydroxide (Milk Of Magnesia 30 Ml Oral.Susp) 30 ml PO DAILY PRN PRN Reason: Constipation Olanzapine (Olanzapine 5 Mg Tablet) 5 mg PO Q4H PRN PRN Reason: agitation Risperidone (Risperidone 1 Mg Tablet) 1 mg PO BID [facility] Last Admin: 11/23/24 08:40 Dose: 1 mg Trazodone HCl (Trazodone Hcl 50 Mg Tablet) 50 mg PO BEDTIME MRX1 PRN PRN Reason: Insomnia Allergies Allergies Allergy/AdvReac Type Severity Reaction Status Date / Time No Known Allergies Allergy Verified 11/21/24 16:24 Assessment & Plan Assessment & Plan (1) Schizophrenia: Status: Acute Code(s): F20.9 - Schizophrenia, unspecified (2) Opioid use disorder in remission: Status: Acute Code(s): F11.91 - Opioid use, unspecified, in remission Plan Patient is a 43-year-old male with history of schizophrenia and opiate use disorder who presented ER due to suicidal ideation secondary to increased auditory hallucinations. Hospital course: 11/23 Patient lying in bed, remains isolative. Last night refused Risperdal but took it today. Patient says that he is good and that mood is better and auditory hallucinations are 100% gone. He denies any SI and says sleeping well. Wants Risperdal to remain b.i.d. Plan: 15 minute safety checks Continue Risperidal 1mg PO BID Obtain collateral encourage groups referral to outpatient psychiatric providers discharge planning Patient educated on: diagnosis and medication risk/benefits Informed Consent: understands and further education needed Reason for continued inpatient stay Substantial Risk for: rapid decompensation Time Spent With Patient Time: Total time managing care of this patient today ____ minutes.
[2024-11-23 19:50] VITALS: BP 107/56; PULSE 72; RESP 18; TEMP 36.8; O2SAT 95
[2024-11-24 08:00] VITALS: BP 108/56; PULSE 59; TEMP 36.9
--- NOTE | 2024-11-24 13:06 | P.PNPSI_ITS ---
Subjective Subjective Date of Service: 11/24/24 Reason For Visit: major depression recurrent, severe with psychosis Interim History: Met with patient; discussed with team Patient continues to report that he is doing good and that AH remain completely gone. He has been refusing bedtime Risperdal and says he only wants 1 mg during the day which he thinks is enough. Patient has also been refusing Suboxone. He reports he has been on this for 6 years but wants to see how he does off of it. Elevator Mechanic Apprentice discussed withdrawal and option to taper off this medication however patient says he has not experienced withdrawal yet and just wants to continue seeing how his body does; he feels comfortable refusing his medication but will take it if he wants to Mental Status Exam Mental Status Exam Narrative: Pt is alert and oriented; behavior is still mostly isolative and keeping to himself but has been out of his room and in the milieu more; cooperative on approach, calm; patient is not in distress; dressed in hospital attire, unkempt; mood is described as good and affect congruent, brighter; eye contact appropriate; Speech is normal rate, volume and prosody and not pressured; no psychomotor retardation present; thought process is organized and goal directed; Thought content is not much disclosed but otherwise on tx; no expressed delusional ideations; denies any SI/HI. Denies AVH. Patients insight and judgment improved Diagnostics Vital Signs (24Hr): Vital Signs - 24 hr 11/23/24 19:50 11/24/24 08:00 Temperature 98.2 F 98.4 F Pulse Rate 72 59 Respiratory Rate 18 Blood Pressure 107/56 L 108/56 L Pulse Oximetry 95 Oxygen Delivery Method Room Air Room Air BMI result Body Mass Index 30.5 Labs 11/22/24 08:50 Medications Medications Current Medications Acetaminophen (Acetaminophen 325 Mg Tablet) 650 mg PO Q6H PRN PRN Reason: Headache/Pain, Scale 1-10 Al Hydroxide/Mg Hydroxide (Magnesium Hydrox/Alum Hydrox 30 Ml Oral.Susp) 30 ml PO Q6H PRN PRN Reason: Heartburn/Nausea Buprenorphine/Naloxone (Buprenorphine/Naloxone 8/2 Mg Film) 1 film SUBLINGUAL TID JEAN CLAUDE Last Admin: 11/24/24 10:55 Dose: Not Given Hydroxyzine HCl (Hydroxyzine Hcl 25 Mg Tablet) 25 mg PO Q6H PRN PRN Reason: mild anxiety Last Admin: 11/22/24 13:22 Dose: 25 mg Magnesium Hydroxide (Milk Of Magnesia 30 Ml Oral.Susp) 30 ml PO DAILY PRN PRN Reason: Constipation Olanzapine (Olanzapine 5 Mg Tablet) 5 mg PO Q4H PRN PRN Reason: agitation Risperidone (Risperidone 1 Mg Tablet) 1 mg PO BID JEAN CLAUDE Last Admin: 11/24/24 08:55 Dose: 1 mg Trazodone HCl (Trazodone Hcl 50 Mg Tablet) 50 mg PO BEDTIME MRX1 PRN PRN Reason: Insomnia Allergies Allergies Allergy/AdvReac Type Severity Reaction Status Date / Time No Known Allergies Allergy Verified 11/21/24 16:24 Assessment & Plan Assessment & Plan (1) Schizophrenia: Status: Acute Code(s): F20.9 - Schizophrenia, unspecified (2) Opioid use disorder in remission: Status: Acute Code(s): F11.91 - Opioid use, unspecified, in remission Plan Patient is a 43-year-old male with history of schizophrenia and opiate use disorder who presented ER due to suicidal ideation secondary to increased auditory hallucinations. Hospital course: 11/23 Patient lying in bed, remains isolative. Last night refused Risperdal but took it today. Patient says that he is good and that mood is better and auditory hallucinations are 100% gone. He denies any SI and says sleeping well. Wants Risperdal to remain b.i.d. 11/24 Patient continues to report that he is doing good and that AH remain completely gone. He has been refusing bedtime Risperdal and says he only wants 1 mg during the day which he thinks is enough. Patient has also been refusing Suboxone. He reports he has been on this for 6 years but wants to see how he does off of it. Elevator Mechanic Apprentice discussed withdrawal and option to taper off this medication however patient says he has not experienced withdrawal yet and just wants to continue seeing how his body does; he feels comfortable refusing his medication but will take it if he wants to Plan: 15 minute safety checks Change to Risperdal 1 mg daily (patient reports that AH fully resolved on only 1 mg and does not want b.i.d.) Continue Suboxone; patient has been refusing; understands risks Obtain collateral encourage groups referral to outpatient psychiatric providers discharge planning Patient educated on: diagnosis, medication risk/benefits and substance abuse Informed Consent: understands Reason for continued inpatient stay Substantial Risk for: rapid decompensation Time Spent With Patient Time: Total time managing care of this patient today ____ minutes.
[2024-11-24 20:00] VITALS: BP 106/58; PULSE 67; TEMP 37; O2SAT 98
[2024-11-25 08:00] VITALS: BP 124/66; PULSE 67; TEMP 36.4; O2SAT 99
[2024-11-25 20:00] VITALS: BP 102/58; PULSE 85; TEMP 37.1; O2SAT 98
--- NOTE | 2024-11-25 22:40 | HO.PSYCHPN ---
Subjective Subjective Date of Service: 11/25/24 Reason For Visit: major depression recurrent, severe with psychosis Subjective Notes: 3 Day Healthcare Proxy: No Guardianship: No Medical Problems Affecting Mental Status: No Interim History: Medical record and nursing notes reviewed; case discussed during rounds with team/nursing staff, and met with patient for supportive therapy/psychoeducation, as well as medication management. Slept for 8 hours. No issue with appetite. Refused scheduled suboxone and denies W/D symptoms. Denies voices or safety concerns. SW refers patient to [facility] OP provider for FLU with psychiatric care. Patient would like to be discharged earlier than 3 day which is up this . Report Atarax is helpful with anxiety and that what he needs. Will send med to preferred pharmacy. Would be discharged tomorrow back home. Medication Compliance: No (refused suboxone ) Side effects from medications: No Attending Groups: Intermittent Review of Systems Acute medical concerns: No Medical Review of Systems: unchanged Review of Systems Review of Systems Denies any shortness of breath, chest pain, dizziness, lightheadedness, abdominal pain or discomfort, nausea vomiting or diarrhea Mental Status Exam Mental Status Exam Narrative: Pt is alert and oriented; behavior is more visible and social, cooperative on approach, calm; patient is not in distress; dressed in hospital attire, unkempt; mood is described as good and affect congruent, brighter; eye contact appropriate; Speech is normal rate, volume and prosody and not pressured; no psychomotor retardation present; thought process is organized and goal directed; Thought content is on tx; no expressed delusional ideations; denies any SI/HI. Denies AVH. Patients insight and judgment improved Diagnostics Vital Signs (24Hr): Vital Signs - 24 hr 11/25/24 08:00 11/25/24 20:00 Temperature 97.6 F 98.8 F Pulse Rate 67 85 Blood Pressure 124/66 102/58 L Pulse Oximetry 99 98 Oxygen Delivery Method Room Air Room Air BMI result Body Mass Index 30.5 Labs 11/22/24 08:50 Medications Medications Current Medications Acetaminophen (Acetaminophen 325 Mg Tablet) 650 mg PO Q6H PRN PRN Reason: Headache/Pain, Scale 1-10 Al Hydroxide/Mg Hydroxide (Magnesium Hydrox/Alum Hydrox 30 Ml Oral.Susp) 30 ml PO Q6H PRN PRN Reason: Heartburn/Nausea Buprenorphine/Naloxone (Buprenorphine/Naloxone 8/2 Mg Film) 1 film SUBLINGUAL TID [facility] Last Admin: 11/25/24 20:23 Dose: Not Given Hydroxyzine HCl (Hydroxyzine Hcl 25 Mg Tablet) 25 mg PO Q6H PRN PRN Reason: mild anxiety Last Admin: 11/24/24 14:26 Dose: 25 mg Magnesium Hydroxide (Milk Of Magnesia 30 Ml Oral.Susp) 30 ml PO DAILY PRN PRN Reason: Constipation Olanzapine (Olanzapine 5 Mg Tablet) 5 mg PO Q4H PRN PRN Reason: agitation Risperidone (Risperidone 1 Mg Tablet) 1 mg PO DAILY [facility] Last Admin: 11/25/24 09:44 Dose: 1 mg Trazodone HCl (Trazodone Hcl 50 Mg Tablet) 50 mg PO BEDTIME MRX1 PRN PRN Reason: Insomnia Allergies Allergies Allergy/AdvReac Type Severity Reaction Status Date / Time No Known Allergies Allergy Verified 11/21/24 16:24 Assessment & Plan Assessment & Plan (1) Schizophrenia: Status: Acute Code(s): F20.9 - Schizophrenia, unspecified (2) Opioid use disorder in remission: Status: Acute Code(s): F11.91 - Opioid use, unspecified, in remission Plan Patient is a 43-year-old male with history of schizophrenia and opiate use disorder who presented ER due to suicidal ideation secondary to increased auditory hallucinations. Hospital course: 11/23 Patient lying in bed, remains isolative. Last night refused Risperdal but took it today. Patient says that he is good and that mood is better and auditory hallucinations are 100% gone. He denies any SI and says sleeping well. Wants Risperdal to remain b.i.d. 11/24 Patient continues to report that he is doing good and that AH remain completely gone. He has been refusing bedtime Risperdal and says he only wants 1 mg during the day which he thinks is enough. Patient has also been refusing Suboxone. He reports he has been on this for 6 years but wants to see how he does off of it. Medical Assistant Instructor discussed withdrawal and option to taper off this medication however patient says he has not experienced withdrawal yet and just wants to continue seeing how his body does; he feels comfortable refusing his medication but will take it if he wants to 11/25/24: Slept for 8 hours. No issue with appetite. Refused scheduled suboxone and denies W/D symptoms. Denies voices or safety concerns. SW refers patient to [facility] OP provider for FLU with psychiatric care. Patient would like to be discharged earlier than 3 day which is up this . Report Atarax is helpful with anxiety and that what he needs. Will send med to preferred pharmacy. Would be discharged tomorrow back home. Plan: 15 minute safety checks Change to Risperdal 1 mg daily (patient reports that AH fully resolved on only 1 mg and does not want b.i.d.) Continue Suboxone; patient has been refusing; understands risks Obtain collateral encourage groups referral to outpatient psychiatric providers discharge planning Patient educated on: diagnosis, medication risk/benefits, substance abuse and therapeutic strategies Informed Consent: understands Reason for continued inpatient stay Substantial Risk for: med/psych decompensation Time Spent With Patient Time: Total time managing care of this patient today ____ minutes.
[2024-11-26 08:00] VITALS: BP 113/62; PULSE 67; TEMP 36.7; O2SAT 99
--- NOTE | 2024-11-26 09:17 | PM.PSYDC ---
DS: Providers Provider Date of Service: 11/26/24 Date of admission: 11/21/24 14:23 Date of discharge: 11/26/24 Primary care physician: None Physician Attending physician on admission: Kimmy Gibson Consults: 11/21/24 19:57 Consult to Hospitalist Routine Comment: Consulting Provider: [facility] Reason For Exam: medical H&P Attending physician on discharge: Jennifer Kilgore DS: Diagnosis Discharge Diagnosis (1) Schizophrenia: Status: Acute (2) Opioid use disorder in remission: Status: Acute DS: Medications Discharge Medications Home Medications: Home Medications ?Medication ?Instructions ?Recorded ?Confirmed buprenorphine 8 mg-naloxone 2 mg 1 film sublingual TID 11/21/24 11/21/24 sublingual film Previous Rx's ?Medication ?Instructions ?Recorded hydroxyzine HCl 25 mg tablet 25 mg PO TID PRN mild anxiety #60 11/25/24 tabs risperidone 1 mg tablet 1 mg PO DAILY psychosis #30 tabs 11/25/24 Mental Status Exam Mental Status Exam Narrative: Patient presents well-groomed, casually dressed. Affect is euthymic with full range. Speech is clear and coherent. Thought process is linear and logical. Thought content is appropriate and relevant. Patient denies suicidal or homicidal ideation intent or plan. No overt psychotic symptoms elicited. Insight is good. Judgment is good. Data Data Completed and Pending Completed studies during hospitalization [Text1]: 11/22/24 08:50 Sodium 139 Potassium 4.5 Chloride 100 Carbon Dioxide 35 H Anion Gap 9 L BUN 14 Creatinine 0.89 Estim Creat Clear Calc 116.0 Estimated GFR > 60 Random Glucose 105 Estimat Average Glucose 117 Hemoglobin A1c % 5.7 Calcium 9.8 Total Bilirubin 0.3 AST 22 ALT 15 Alkaline Phosphatase 105 Total Protein 7.4 Albumin 4.7 Triglycerides 139 Cholesterol 208 H LDL Cholesterol, Calc 136 H HDL Cholesterol 45 Vitamin B12 354 Folate 9.2 TSH 2.17 DS: Summary Hospital Course Hospital Course: Per admitting provider note on HPI: Patient is a 43-year-old male with history of schizophrenia and opiate use disorder who presented ER due to suicidal ideation secondary to increased auditory hallucinations. Hospital course: 11/23 Patient lying in bed, remains isolative. Last night refused Risperdal but took it today. Patient says that he is good and that mood is better and auditory hallucinations are 100% gone. He denies any SI and says sleeping well. Wants Risperdal to remain b.i.d. 11/24 Patient continues to report that he is doing good and that AH remain completely gone. He has been refusing bedtime Risperdal and says he only wants 1 mg during the day which he thinks is enough. Patient has also been refusing Suboxone. He reports he has been on this for 6 years but wants to see how he does off of it. 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 No issue with appetite. Refused scheduled suboxone and denies W/D symptoms. Denies voices or safety concerns. SW refers patient to [facility] provider for FLU with psychiatric care. Patient would like to be discharged earlier than 3 day which is up this . Report Atarax is helpful with anxiety and that what he needs. Will send med to preferred pharmacy. Would be discharged tomorrow back home. 11/26/24: Review with patient regarding medication was sent to prefer pharmacy. Patient is aware of Suboxone is not sent but he can continue taking home supply which he picked up at the beginning of the this month. Reported that he has some supply at home. Patient has not taking any Suboxone in the past 2-3 days. Observe no withdrawal symptoms. Patient continued to take prescribed medication. Denies safety concerns. Reports he will walk home but we will take the bus actually. 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 This no appointment month date by the time of discharge but [facility] will follow-up and call patient once they have a definit day. Time spent discussing smoking cessation with patient: 3 to 10 minutes Status at Discharge Cognitive/behavioral status at discharge: CONDITION ON DISCHARGE: CURRENT STATUS IT RELATES TO ADMISSION CRITERIA: Stable, improved. Improvements in depression, anxiety, and suicidal ideation. Improvements in sleep, energy, and appetite. and no hallucination or paranoia/delusional thought. Functional status at discharge: independent ambulation Overall status at discharge: patient is back to baseline Time Spent with Patient Time attestation: Total time managing care of this patient today ____ minutes. Time spent: Greater than 30 minutes Discharge Plan Discharge Anticipated Discharge Date/Time: 11/26/24 09:13 Patient Disposition: Home, Self-Care Discharge Diagnosis: Schizophrenia Referrals: [facility] ([facility]): Therapy [Other] - 12/03/24 1:30 pm Referral Note: Patient referred to [facility] for outpatient therapy services. Agency will follow-up with you in regards to scheduled appointment as they were processing request of services and unable to provide information prior to discharge [facility] ([facility]): Psychiatry [Other] - 1 Week Referral Note: Patient referred to [facility] for outpatient psychiatric medication management services. Agency will follow-up with you in regards to scheduled appointment as they were processing request of services and unable to provide information prior to discharge [facility]: Charlene Lawrence (substance use case management) [Other] - 12/03/24 1:00 pm Referral Note: Hospital discharge appointment, substance abuse case management. Appointment in person at [facility] in [place], [place]. Physician,None [Primary Care Provider, Medical] - 1 Week Referral Note: Pt declined f/u appointment with a PCP. Discharge Medications: New hydroxyzine HCl 25 mg Tablet 25 mg PO TID PRN (Reason: mild anxiety) Qty: 60 0RF risperidone 1 mg Tablet 1 mg PO DAILY Qty: 30 0RF Continued buprenorphine-naloxone 8-2 mg film 1 film sublingual TID Discharge Orders: Discharge Order (Routine); Ordered 11/26/24 Ordered By: Jennifer Kilgore Diet: Regular diet Activity on Discharge: No Restrictions Stand Alone Forms: Patient Portal Discharge page, Community Support Print Language: Bengali Care Plan Goals: Maintain mood and safe behaviors Take medications as prescribed Continue to pursue sobriety Practice coping skills Continue with outpatient providers and reach out to them as needed Health Concerns: Mood stability and behaviors Sobriety Plan of Treatment: Follow up with your PCP, psychiatric provider and other outpatient providers regarding above concerns Take medications as prescribed Assessment: Assessment: Risk assessment at time of discharge: Patient was interviewed prior to discharge and found to be fully oriented and without any SI or HI. Patient has improved insight and judgment and wants to continue treatment. Patient is not in imminent risk of harm to self or others and has a safety plan that includes presenting to the closest ER or calling 911 if feeling unsafe. Patient has been observed closely by nursing and unit staff throughout admission; patient has not engaged in any behaviors that suggest dangerousness to self or others and has demonstrated appropriate behaviors and impulse control Discharge Date/Time: 11/26/24 11:50
== END 2024-11-26 11:50 | disposition home or self-care (01) | DRG 885 ==
PROVIDERS: Social Worker; Admitting Provider Psychiatry & Neurology Psychiatry; Visit Provider Psychiatry & Neurology Psychiatry
DX: F20.9 Schizophrenia, unspecified (principal); F11.20 Opioid dependence, uncomplicated; R45.851 Suicidal ideations; F17.210 Nicotine dependence, cigarettes, uncomplicated; Z71.6 Tobacco abuse counseling; Z79.899 Other long term (current) drug therapy
CPT/HCPCS: 36415; 80053; 80061; 82607; 82746; 83036; 84443

== ENCOUNTER → 2024-11-21 14:23 | Outpatient (BNV) | payer MEDICARE, MEDICAID, SELFPAY | PROVIDERS: Admitting Provider Psychiatry & Neurology Psychiatry; Visit Provider Nurse Practitioner Family | DX: F32.9 Major depressive disorder, single episode, unspecified (principal) | CPT/HCPCS: 99221 ==

== ENCOUNTER → 2024-11-21 14:23 | Outpatient (BNV) | payer MEDICARE, MEDICAID, SELFPAY | PROVIDERS: Admitting Provider Psychiatry & Neurology Psychiatry; Visit Provider Registered Nurse | DX: F20.9 Schizophrenia, unspecified (principal); F11.91 Opioid use, unspecified, in remission | CPT/HCPCS: 90792; 99232; 99238 ==